=== PATIENT | male | born 2000 | race Caucasian/White ===

== ENCOUNTER 2023-06-05 11:13 | Emergency (ER) | payer BC, SELFPAY ==
[2023-06-05 11:18] VITALS: BP 124/81; PULSE 95; RESP 18; TEMP 36.9; O2SAT 98; BMI 19.7
--- NOTE | 2023-06-05 11:24 | XR_ITS ---
[facility] [id number] Patient Name: ZARINA DUNNE MRN: [id number] date: 2000 Sex: M Assigned Patient Location: ER Current Patient Location: ED.MAIN Accession/Order Number: [id number] Exam Date: 06/05/2023 11:32 Report Date: 06/05/2023 11:55 At the request of: SONG MARCUS Procedure: XR finger RT min 2V PROCEDURE: XR finger RT min 2V HISTORY: crush injury to right hand second digit COMPARISON: None. FINDINGS: BONES:No fracture, acute abnormality, or significant arthropathy. SOFT TISSUES:No visible soft tissue swelling. EFFUSION:None visible. OTHER: Negative. XR/XR finger RT min 2V IMPRESSION: 1. No acute bone abnormality. Electronically authenticated by: CHARLES HERNANDEZ Date: 06/05/2023 11:55
--- NOTE | 2023-06-05 12:22 | ED.UPPEXIN1 ---
HPI - Extremity Injury (Upper) General Chief Complaint: Extremity Injury, Upper Stated Complaint: UPPER EXTREMITY INJURY Time Seen by Provider: 06/05/23 12:22 Source: patient Mode of arrival: walk-in Limitations: no limitations History of Present Illness HPI narrative: patient here in injury to his right index finger. He got it caught in a door while at work today. He believes his regular childhood shots are up-to-date. He was seen by the nursing staff with x-rays at triage. X-ray of the right index finger does not show any bony abnormality. He does not have any other injuries today. He is right-handed dominant. Related Data Home Medications Medication Instructions Recorded Confirmed No Known Home Medications 06/05/23 06/05/23 Allergies Allergy/AdvReac Type Severity Reaction Status Date / Time No Known Drug Allergies Allergy Verified 06/05/23 11:18 PFSH PFSH Social History Smoking status: Current every day smoker Exam Narrative Exam Narrative: awake alert pleasant. Somewhat anxious about the injury. On examination there is a lot of dried blood in the area. We will soak him in some saline solution and gently cleanse the area to assess the damages. I do not see an obvious laceration. The rest the hand is normal with the exception the distal phalanx of the right index finger. Constitutional Vital Signs, click to edit/add: Last Vital Signs Temp 98.5 F 06/05/23 11:18 Pulse 95 H 06/05/23 11:18 Resp 18 06/05/23 11:18 BP 124/81 06/05/23 11:18 Pulse Ox 98 06/05/23 11:18 O2 Del Method Room Air 06/05/23 11:18 Course Vital Signs Vital signs: Vital Signs Temperature 98.5 F 06/05/23 11:18 Pulse Rate 95 H 06/05/23 11:18 Respiratory Rate 18 06/05/23 11:18 Blood Pressure 124/81 06/05/23 11:18 Pulse Oximetry 98 06/05/23 11:18 Oxygen Delivery Method Room Air 06/05/23 11:18 Temperature 98.5 F 06/05/23 11:18 Pulse Rate 95 H 06/05/23 11:18 Respiratory Rate 18 06/05/23 11:18 Blood Pressure 124/81 06/05/23 11:18 Pulse Oximetry 98 06/05/23 11:18 Oxygen Delivery Method Room Air 06/05/23 11:18 Discharge Plan Discharge Chief Complaint: Extremity Injury, Upper Prescriptions / Home Meds: No Action No Known Home Medications Referrals: Physician,Non-Staff, MD [Primary Care Provider] - 1 week
--- NOTE | 2023-06-05 13:38 | ED_ITS ---
HPI - Extremity Injury (Upper) General Chief Complaint: Extremity Injury, Upper Stated Complaint: UPPER EXTREMITY INJURY Time Seen by Provider: 06/05/23 12:22 Source: patient Mode of arrival: walk-in Limitations: no limitations History of Present Illness HPI narrative: Patient is a 22-year-old male who presents to the emergency department for the evaluation of a crush injury to the right index finger that occurred at work. He states he slammed his finger in a steel door. He reported to attending physician that his tetanus is up-to-date. He sustained a superficial laceration to the distal tip of the finger under the fingernail. Bleeding is well- controlled. No other associated injuries. He is right-hand dominant. Related Data Previous Rx's Medication Instructions Recorded hydrocodone 5 mg-acetaminophen 325 1 tab PO Q6H PRN pain 3 days #12 06/05/23 mg tablet tabs ketorolac 10 mg tablet 10 mg PO TID PRN pain #10 tabs 06/05/23 Allergies Allergy/AdvReac Type Severity Reaction Status Date / Time No Known Drug Allergies Allergy Verified 06/05/23 11:18 Review of Systems ROS Constitutional Denies: fever or chills Ears, nose, mouth, and throat Denies: throat pain Cardiovascular Denies: chest pain Respiratory Denies: shortness of breath or cough Gastrointestinal Denies: nausea or vomiting Musculoskeletal Reports: extremity pain and extremity swelling; Denies: back pain Integumentary/Breast Denies: rash Neurological Denies: headache Hematologic/Lymphatic Denies: easy bruising or easy bleeding PFSH PFS Social History Smoking status: Current every day smoker Exam Narrative Exam Narrative: Gen.: Awake, alert, in no distress Head: Normocephalic, atraumatic ENT: Moist mucous membranes Respiratory: No respiratory distress Extremities: Diffuse tenderness of the distal fingertip of the right index finger with normal flexion and extension. Fingernail is without subungual hematoma. There is a superficial laceration of the skin under the finger nail extending to the radial aspect of the fingertip. Laceration does not extend into the subcutaneous tissue and cannot be pulled apart. Psych: Normal mood and affect Neuro: No focal neuro deficit Skin: Warm, dry Constitutional Vital Signs, click to edit/add: Last Vital Signs Temp 98.5 F 06/05/23 11:18 Pulse 95 H 06/05/23 11:18 Resp 18 06/05/23 11:18 BP 124/81 06/05/23 11:18 Pulse Ox 98 06/05/23 11:18 O2 Del Method Room Air 06/05/23 11:18 Course Vital Signs Vital signs: Vital Signs Temperature 98.5 F 06/05/23 11:18 Pulse Rate 95 H 06/05/23 11:18 Respiratory Rate 18 06/05/23 11:18 Blood Pressure 124/81 06/05/23 11:18 Pulse Oximetry 98 06/05/23 11:18 Oxygen Delivery Method Room Air 06/05/23 11:18 Temperature 98.5 F 06/05/23 11:18 Pulse Rate 95 H 06/05/23 11:18 Respiratory Rate 18 06/05/23 11:18 Blood Pressure 124/81 06/05/23 11:18 Pulse Oximetry 98 06/05/23 11:18 Oxygen Delivery Method Room Air 06/05/23 11:18 MDM - Extremity Injury (Upper) MDM Narrative Medical decision making narrative: Patient was initially evaluated by attending physician. Laceration is superficial and healing will not be improved by sutures. Patient was cleansed in the ER, bacitracin and bulky dressing with splint applied. He was encouraged to keep the area clean, soap and water with antibiotic ointment applied daily. Follow-up with occupational health. A short course of analgesics and NSAIDs given for home. Medical Records Attestation: I reviewed the patient's medical records. Imaging Data XR finger: Attestation: I have reviewed the pertinent imaging results. Discharge Plan Discharge Chief Complaint: Extremity Injury, Upper Clinical Impression: Crushing injury of right index finger Patient Disposition: Home, Self-Care Time of Disposition Decision: 13:33 Condition: Good Prescriptions / Home Meds: New hydrocodone-acetaminophen 5-325 mg tablet 1 tab PO Q6H PRN (Reason: pain) 3 Days Qty: 12 0RF Rx Instructions: DX: S67.10xA ketorolac 10 mg tablet 10 mg PO TID PRN (Reason: pain) Qty: 10 0RF Instructions: Crush Injury (ED) Stand Alone Forms: Portal Instructions Referrals: [facility] [Outside] - 1 week Physician,Non-Staff, MD [Primary Care Provider] - 1 week
[2023-06-05] MEDS: BACITRACIN 0.9 GM PACKET 1 PACKET TOPICAL (13:47)
== END 2023-06-05 13:51 | disposition home or self-care (01) ==
PROVIDERS: Emergency Provider Emergency Medicine Emergency Medical Services
DX: S67.190A Crushing injury of right index finger, initial encounter (principal); W23.0XXA Caught, crushed, jammed, or pinched between moving objects, initial encounter; F17.210 Nicotine dependence, cigarettes, uncomplicated
CPT/HCPCS: 73140; 99283

== ENCOUNTER 2024-05-22 08:20 | Emergency (ER) | payer OTHER, SELFPAY ==
[2024-05-22 08:23] VITALS: BP 136/83; PULSE 95; TEMP 36.5; O2SAT 96; BMI 23.3
[2024-05-22] MEDS: ONDANSETRON 4 MG RAPDIS TABLET SL (08:45)
--- NOTE | 2024-05-22 08:52 | ED_ITS ---
HPI - Nausea/Vomiting/Diarrhea General Chief complaint: Nausea/Vomiting/Diarrhea Stated complaint: VOMITTING Time Seen by Provider: 05/22/24 08:29 Source: patient Mode of arrival: walk-in Limitations: no limitations History of Present Illness HPI Narrative: The patient presented to us with a 3 episodes of nausea and vomiting that started last night. Apparently the patient was in a hotel and when he got to his room apparently vomited 3 times since yesterday. He was able to tolerate p.o. intake with some chips The patient mentioned that he also have some body ache he denies any cough or difficulty breathing or any other complaints He have some epigastric discomfort but there is no diarrhea at the moment Related Data Home Medications ?Medication ?Instructions ?Recorded ?Confirmed No Known Home Medications 05/22/24 05/22/24 Previous Rx's ?Medication ?Instructions ?Recorded ondansetron 4 mg disintegrating 4 mg PO Q8H PRN nausea and 05/22/24 tablet vomiting 48 hours #6 tabs Allergies Allergy/AdvReac Type Severity Reaction Status Date / Time No Known Drug Allergies Allergy Verified 06/05/23 11:18 Review of Systems ROS Status of ROS 10 or more systems reviewed and unremark able except as noted in history and below PFSH PFSH Social History Smoking status: Current every day smoker Little interest or pleasure in doing things: not at all Feeling down, depressed, or hopeless: not at all Exam Narrative Exam Narrative: Nurses notes and vital signs reviewed and patient is not hypoxic. General: Well-appearing and in no apparent distress. Skin: Warm, dry, no pallor noted. No rash. Head: Normocephalic, atraumatic. Neck: Supple, non-tender. Eye: Pupils are equal, round and EOMI. No scleral icterus. Ears, Nose, Mouth, and Throat: TM are clear, no nasal mucosal hypertrophy. Oral mucosa is moist, no posterior oropharynx erythema, uvula is mid-line Cardiovascular: Regular Rate and Rhythm without murmur, gallop or rub. Respiratory: No accessory muscle use or respiratory distress. Lungs are clear to auscultation, no wheezing, rales or rhonchi Chest Wall: no tenderness Back: No midline thoracic or lumbar vertebral tenderness. No CVA tenderness Musculoskeletal: normal ROM, no calf or popliteal tenderness, no lower extremity edema/swelling GI: Abdomen is soft, non-distended. Normal bowel sounds. No masses appreciated. No tenderness to palpation. No rebound, guarding, or rigidity noted. Neurological: A&O x4. No cranial nerve dysfunction observed. No truncal ataxia. Moves all extremities. Sensation intact. Psychiatric: Cooperative and interactive. Normal mood and affect. Constitutional Vital Signs, click to edit/add: Last Vital Signs Temp 97.7 F 05/22/24 08:23 Pulse 95 H 05/22/24 08:23 Resp 18 05/22/24 08:23 BP 136/83 05/22/24 08:23 Pulse Ox 96 05/22/24 08:23 O2 Del Method Room Air 05/22/24 08:23 Course Vital Signs Vital signs: Vital Signs Temperature 97.7 F 05/22/24 08:23 Pulse Rate 95 H 05/22/24 08:23 Respiratory Rate 18 05/22/24 08:23 Blood Pressure 136/83 05/22/24 08:23 Pulse Oximetry 96 05/22/24 08:23 Oxygen Delivery Method Room Air 05/22/24 08:23 Temperature 97.7 F 05/22/24 08:23 Pulse Rate 95 H 05/22/24 08:23 Respiratory Rate 18 05/22/24 08:23 Blood Pressure 136/83 05/22/24 08:23 Pulse Oximetry 96 05/22/24 08:23 Oxygen Delivery Method Room Air 05/22/24 08:23 MDM - Nausea/Vomiting/Diarrhea MDM Narrative Medical decision making narrative: The patient was tolerating p.o. intake before arrival with the [facility] and he had some nausea and vomiting prior to that, but now just supportive care with Zofran and hydration patient to monitoring his symptoms The patient is to follow up with primary care physician in next 2-3 days or to return to the emergency department should any of the signs or symptoms worsen or new symptoms develop. The patient agrees with the following Diagnosis and Treatment plan and the patient will be discharged home. Discharge Plan Discharge Chief Complaint: Nausea/Vomiting/Diarrhea Clinical Impression: Gastroenteritis Patient Disposition: Home, Self-Care Time of Disposition Decision: 09:00 Condition: Good Prescriptions / Home Meds: New ondansetron 4 mg tablet,disintegrating 4 mg PO Q8H PRN (Reason: nausea and vomiting) 2 Days Qty: 6 0RF No Action No Known Home Medications Print Language: Serbian Instructions: Acute Nausea and Vomiting (DC) Referrals: Physician,Non-Staff, MD [Primary Care Provider] - 1 week
--- OUTSIDE RECORDS SUMMARY | 2024-05-22 08:55 | XMS_ITS | CCD ---
Author Organization [facility] Care Team Providers Care Equipment Cleaner And Tester Name Role Phone VIMALBO SILVA Unavailable Unavailable ALEXX REED Unavailable Unavailable ELLEN BEDOYA Unavailable Unavailable ALEXX REED Unavailable Unavailable CESIA DEL TORO (CUSTOMER ENGAGEMENT SPECIALIST) Unavailable Unavailable CESIA DEL TORO (CUSTOMER ENGAGEMENT SPECIALIST) Unavailable Unavailable Vickey Munson Unavailable Unavailable Alexx Reed Unavailable Unavailable Bharathi Jackson Unavailable [phone] Unavailable Unavailable BHARATHI JACKSON Primary Care Physician Dr. Alexx Reed Primary Care Dr. Bharathi Silva Referring Jin Jackson, Dr. Bharathi Garcia Attending Jin Jackson, Dr. Bharathi Garcia Attending Dr. Bharathi Ortega Primary Care Bharathi Ortega MD Primary Care Provider Dillan Funez Attending Dr. Bharathi Silva Primary Care Lane Griffiths Attending Unavailable Seth Amanda Attending Unavailable Allergies Allergy Classification Reported Allergen(s) Allergy Type Date of Onset Reaction(s) Facility (1 source) No Known Medication Allergies; Translations: [No Known Medication Allergies] Propensity to adverse reactions (disorder) [facility] Repository Medications Current Medications Medication Drug Class(es) Dates Sig (Normalized) Sig (Original) hydrOXYzine pamoate 25 mg oral capsule (1 source) Antihistamine Start: 06-25-2022 take 1-2 tablets by mouth three times daily as needed for anxiety Vistaril 25 mg Cap 1-2 tabs, Oral, TID, PRN as needed for anxiety, # 30 tab(s), Refills(s) 0 Start Date: 06/25/22 Status: Ordered ondansetron 4 mg oral tablet (1 source) Serotonin-3 Receptor Antagonist Start: 07-22-2022 End: 07-27-2022 take 1 tablet by mouth every eight hours as needed for nausea Zofran 4 mg Tab 4 mg = 1 tab(s), Oral, q8hr, PRN Nausea/Vomiting, X 5 day(s), # 15 tab(s), Refills(s) 0, Pharmacy: [id number], 184, cm, 07/22/22 12:47:00 EST, Height/Length Dosing, 63.4, kg, 07/22/22 12:47:00 EST, Weight Dosing Start Date: 07/22/22 Stop Date: 07/27/22 Status: Ordered Completed/Discontinued Medications Medication Drug Class(es) Dates Sig (Normalized) Sig (Original) diazePAM 5 mg oral tablet (4 sources) Benzodiazepine Start: 06-15-2022 End: 09-26-2022 take 1 tablet by mouth every twelve hours for anxiety diazePAM (Valium) 5 mg tablet Take 1 tablet (5 mg) by mouth every 12 hours if needed for anxiety. 0 06/18/2022 09/26/2022 Discontinued (Therapy completed) erythromycin 0.005 mg/mg ophthalmic ointment (1 source) Macrolide, Macrolide Antimicrobial Start: 08-20-2023 End: 08-27-2023 erythromycin Opth 0.5% Oint 1/4 inch ribbon, Eye-Right, As Directed for 7 day(s), 3.5 gm, Refill(s) 0, Apply to right eye 3 times a day for the next 7 days, [id number], 184, cm, 08/20/23 12:32:00 EDT, Height/Length Dosing, 66.3, kg, 08/20/23 12:32:00 EDT, Weight Dosing Start Date: 08/20/23 Stop Date: 08/27/23 Status: Ordered Lactose Intolerance CAPS (1 source) Lactose Intolerance CAPS Refills: 0 Active Omeprazole (1 source) Proton Pump Inhibitor Omeprazole TBEC Refills: 0 Active PARoxetine hydrochloride 10 mg oral tablet (4 sources) Serotonin Reuptake Inhibitor Start: 06-15-2022 End: 09-26-2022 take 1 tablet by mouth once daily PARoxetine (Paxil) 10 mg tablet Take 1 tablet (10 mg) by mouth once daily. as directed 0 06/15/2022 09/26/2022 Discontinued (Therapy completed) Problems Active Problems Problem Classification Problem Date Documented Da te Episodic/Chronic Acute bronchitis (1 source) Acute bronchitis Onset: 7 Anxiety disorders (8 sources) Mixed anxiety and depressive disorder; Translations: [Panic attack] Onset: 3 Chronic Disorders usually diagnosed in infancy, childhood, or adolescence (2 sources) Other tic disorders; Translations: [Tic disorder, unspecified] Onset: 3 Chronic Esophageal disorders (1 source) Gastro-esophageal reflux disease without esophagitis; Translations: [Gastro-esophageal reflux disease without esophagitis] Onset: 3 Chronic Esophageal disorders (1 source) Esophageal disorders Onset: 7 Headache, including migraine (8 sources) Headache; Translations: [Headache disorder] Onset: 7 09-18-2022 Episodic Headache, including migraine (1 source) Headache, including migraine Onset: 7 Headache; including migraine (1 source) Migraine; Translations: [Migraine, unspecified, not intractable, without status migrainosus] Onset: 3 Chronic Inflammation; infection of eye (except that caused by tuberculosis or sexually transmitteddisease) (1 source) Blepharitis of right eyelid; Translations: [Unspecified blepharitis right eye, unspecified eyelid] Onset: 4 Episodic Intracranial injury (3 sources) Personal history of traumatic brain injury; Translations: [History of concussion injury of brain] Episodic Comment on above: Hospitalized; Mood disorders (5 sources) Depressive disorder; Translations: [Depressive disorder, not elsewhere classified] Onset: 3 09-18-2022 Chronic Nausea and vomiting (1 source) Nausea and vomiting; Translations: [Nausea with vomiting, unspecified] Onset: 3 Episodic Other connective tissue disease (4 sources) Muscle pain; Translations: [Myalgia and myositis, unspecified] Onset: 3 09-18-2022 Episodic Other disorders of stomach and duodenum (3 sources) Stomach problem; Translations: [Unspecified functional disorder of stomach] Episodic Comment on above: Hospitalized; Other gastrointestinal disorders (3 sources) Personal history of other diseases of the digestive system; Translations: [History of gastroesophageal reflux disease] Episodic Other injuries and conditions due to external causes (3 sources) H/O: head injury; Translations: [Personal history of other injury] Episodic Other lower respiratory disease (1 source) Hyperventilation; Translations: [Hyperventilation] Onset: 3 Episodic Residual codes; unclassified (3 sources) Insomnia; Translations: [Sleep disturbance, unspecified] Episodic Screening and history of mental health and substance abuse codes (1 source) H/O: anxiety state; Translations: [Personal history of other mental and behavioral disorders] 09-18-2022 Episodic Unclassified (1 source) Other fatigue / R53.83(ICD-9) Onset: 7 Unclassified (2 sources) Acute pharyngitis, unspecified / J02.9(ICD-9) Onset: 7 Unclassified (1 source) Cough / R05(ICD-9) Onset: 7 Unclassified (1 source) Lactose intolerance, unspecified / E73.9(ICD-9) Onset: 7 Unclassified (1 source) Contact with and (suspected) exposure to COVID-19; Translations: [Contact with and (suspected) exposure to COVID-19] Onset: 3 Past or Other Problems Problem Classification Problem Date Documented Date Episodic/Chronic Malaise and fatigue (1 source) Other fatigue; Translations: [Other fatigue] Onset: 01-17-2017 Episodic Mood disorders (1 source) Mood disorders Onset: 06-15-2022 09-25-2022 Other aftercare (1 source) Other custodial (current) drug therapy; Translations: [Other community health education coordinator (current) drug therapy] Onset: 06-30-2022 Episodic Other lower respiratory disease (1 source) Cough; Translations: [Cough] Onset: 04-23-2017 Episodic Other nervous system disorders (1 source) Other speech disturbances; Translations: [Other speech disturbances] Onset: 06-30-2022 Episodic Other nutritional; endocrine; and metabolic disorders (3 sources) Malabsorption of glucose; 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 Comment on above: Added by Problem Kyra t Migration; 2013-01-18; Moved to [facility] Apr 18 2013 4:02PM; Other upper respiratory infections (1 source) Acute pharyngitis, unspecified; Translations: [Acute pharyngitis, unspecified] Onset: 04-23-2017 Episodic Results Test Name Value Interpretation Reference Range Facility Ambulatory Visit Summaryon 0 08-20-2023 Ambulatory Visit Summary KING DUNNE :2000 Visit Date:08/20/2023 Ambulatory Visit Instructions Your Diagnosis Blepharitis of right eye Your Care Team Attending Physician - Treasure SANDOVAL, Seth Evans Primary Care Physician - MANUEL CASTELAN, BHARATHI Hurtado This Is Your Medications List erythromycin ophthalmic (erythromycin Opth 0.5% Oint) Procedures Performed None. Discharge Vitals Temperature (Oral) 36.8 ?C Heart Rate (Peripheral) 79 Blood Pressure 120/70 Height 184 cm Height 72 in Weight 66.3 kg Weight 145.86 lb BMI 19.58 Medications What How Much When Why Instructions New erythromycin ophthalmic (erythromycin Opth 0.5% Oint) 1/4 inch ribbon Right eye As Directed Blepharitis of right eye Duration: 7 Days Apply to right eye 3 times a day for the next 7 days Pickup at [facility] Pharmacy Information [facility]: [id number] [phone] Medications and Immunizations Administered Not Given influenza virus vaccine, inactivated, Patient Refuses Allergies No Known Allergies No Known Medication Allergies Patient Survey You may receive a survey via text or e-mail asking about your office visit. Please share your experience with us by completing your survey. We appreciate your feedback and thank you for choosing us for your care. Normal [facility] Family Medicine Office/Clini c Noteon 08-20-2023 Family Medicine Office/Clinic Note Chief Complaint swollen, red, itchy right eye HPI Staff 22 year old male presents with painful, itchy, and swollen shut right eye. bruising. no injury symptoms began two days ago History of Present Illness Reviewed and agree with above documented HPI by medical imaging director. Patient is a 22-year-old male who presents with complaint of a painful, itchy, swollen right eye. He states when symptoms began it, felt like his eye was bruised. He denies any injury or foreign body injection to the eye. He does state that he works for the [employer] and even though he has gloves sometimes his hands get dirty. He states there is a possibility he may have gotten an unintentional foreign object into his eye. He denies being recently sick or being around anyone has been sick. He states the symptoms started 2 days ago. He denies blurry or double vision. He states that everything looks clear as long as he looks down. He states that things are blurry when he tries to look for due to the swelling of his right eye. Denies any symptoms of left eye. His mother did place 1 drop of gentamicin eyedrops in his eye this morning. Patient has no known allergies. Review of Systems PHQ Score Initial Depression Screen Score: 0 SCORE Physical Exam Vitals & Measurements T: 36.8 ?C(Oral) HR: 79(Peripheral) BP: 120/70 SpO2: 98% HT: 72 in HT: 184 cm WT: 66.3 kg WT: 145.86 lb BMI: 19.58 General: Well developed, well nourished, in no acute distress, does not appear ill or septic Eyes: Pupils equal, round, and reactive to light. Conjunctivae and sclerae normal, and extraocular movements intact right eyelid swollen and erythemic, crusty exudate on eyelashes, no foreign object seen with exam Ears: No deformity or lesion of external ear. Canals and TM appear normal bilaterally. TM?s intact, not inflamed, with normal light reflex. Hearing grossly normal to conversational speech Nose: No deformity, discharge, inflammation, or lesions Mouth: Mucous membranes moist. Normal oropharynx, and posterior pharynx without lesions or exudates. Tongue normal Neck: no adenopathy Lungs: Normal respiratory effort and clear to auscultation Cardio: regular rate and rhythm, no murmur Abdomen: Soft, non-distended, non-tender Musculoskeletal: No deformity or scoliosis noted. Normal range of motion. Joints normal. No erythema, edema, effusion, or ecchymosis Extremity: No clubbing, cyanosis, edema, or deformity, with normal ROM in both upper and lower bilateral extremities Neurologic: Grossly normal Skin: No rashes, ulcerations, or suspicious lesions Mental Status: Alert and oriented x3. Normal speech and thought content, normal mood and affect Assessment/Plan 1. Blepharitis of right eye (H01.003: Unspecified blepharitis right eye, unspecified eyelid) Please follow-up with your eye physician in 3 to 5 days. Discussed with patient in regards to treatment for blepharitis of the right upper eyelid. A prescription for erythromycin eye ointment was sent to the patient's pharmacy for her to use on the left upper eyelid 3 times daily over the next 7 days. Patient understands to return or follow-up closely with eye physician for any worsening or concerning symptoms. Patient agrees and understands plan of care. Ordered: erythromycin ophthalmic, 1/4 inch ribbon, Eye-Right, As Directed for 7 day(s), 3.5 gm, Refill(s) 0, Apply to right eye 3 times a day for the next 7 days, [facility], 184, cm, 08/20/23 12:32:00 EDT, Height/Length Dosing, 66.3, kg, 08/20/23 12:32:00 EDT, Weight Dosing Portions of this record may have been created with voice recognition artificial intelligence software, specifically [employer] and or [employer]. Occasional wrong-word or `pxndr-h-ppuf? substitutions may have occurred due to the inherent limitations of voice recognition and artificial intelligence software. Follow-up No qualifying data available Patient Education Blepharitis, Poqh-qy-[id number] Problem List/Past Medical History Ongoing No qualifying data Historical No qualifying data Procedure/Surgical History None. Medications erythromycin Opth 0.5% Oint, 1/4 inch ribbon, Eye-Right, As Directed Allergies No Known Allergies No Known Medication Allergies Social History Alcohol - Denies Alcohol Use, 06/25/2022 Substance Abuse - Denies Substance Abuse, 06/25/2022 Tobacco - Denies Tobacco Use, 06/25/2022 Never (less than 100 in lifetime) Tobacco Use:. Never Smokeless Tobacco Use:., 08/20/2023 Family History Family history is negative Immunizations Vaccine Date Status Comments influenza virus vaccine, inactivated - Not Given Patient Refuses SARS-CoV-2 (COVID-19) mRNA BNT-162b2 vax 12/17/2020 Recorded SARS-CoV-2 (COVID-19) mRNA BNT-162b2 vax 11/25/2020 Recorded meningococcal conjugate vaccine 11/17/2019 Recorded influenza virus vaccine, inactivated 05/29/2019 Recorded influenza virus vaccine, inactivated 03/13/2018 Recorded influenza virus (more content not included)... Normal [facility] Comment on above: Result Comment: Elec tronically Signed By: Treasure SANDOVAL, Seth Villeda.br\Date and Time Signed: 08/20/23 14:37 EDT Patient Educationon 08-20-19 Patient Education Infectious Disease Blepharitis Blepharitis is swelling of the eyelids. It can cause the eyes to feel dry or gritty. Other symptoms may include: ? Reddish, scaly skin around the scalp and eyebrows. ? Eyelids that itch or burn. ? Fluid that leaks from the eye at night. This causes the eyelashes to stick together in the morning. ? Eyelashes that fall out. ? Redness of the eyes. ? Eyes that are sensitive to light. Follow these instructions at home: Watch for any changes in how your eyes look or feel. Tell your doctor about any changes. Follow these instructions to help with your condition. Keeping clean ? Wash your hands often with soap and water for at least 20 seconds. ? Clean your eyes. Wash the edges of your eyelids using eyelid wipes or a small amount of baby shampoo that has been mixed with warm water (diluted). Do this 2 or more times a day. ? Wash your face and eyebrows at least once a day. ? Use a clean towel each time you dry your eyelids. ? Do not use the towel to clean or dry other areas of your body. ? Do not share your towel with anyone. General instructions ? Avoid wearing makeup until you get better. Do not share makeup with anyone. ? Avoid rubbing your eyes. ? Use a warm compress on your eyes for 5?10 minutes at a time. Do this 1 or 2 times a day, or as told by your doctor. You can use: ? A towel with warm water on it. ? A heating pad that can be warmed in the microwave. The pad should be very warm but not hot enough to burn the skin. ? If you were given an antibiotic cream or eye drops, use the medicine as told by your doctor. Do not stop using the medicine even if you feel better. ? Keep all follow-up visits. Contact a doctor if: ? Your eyelids feel hot. ? You have blisters on your eyelids. ? You have a rash on your eyelids. ? The swelling does not go away in 2?4 days. ? The swelling gets worse. Get help right away if: ? You have pain that gets worse or spreads to other parts of your face. ? You have redness that gets worse or spreads to other parts of your face. ? You have changes in how you see (vision). ? You have pain when you look at lights or things that move. ? You have a fever. Summary ? Blepharitis is swelling of the eyelids. ? Watch for any changes in how your eyes look or feel. Tell your doctor about any changes. ? Follow home care instructions as told by your doctor. Wash your hands often with soap and water for at least 20 seconds. Avoid wearing makeup. Do not rub your eyes. ? Use a warm compress, creams, or eye drops as told by your doctor. ? Let your doctor know if you have changes in how you see, blisters or a rash on your eyelids, or other problems. This information is not intended to replace advice given to you by your health care provider. Make sure you discuss any questions you have with your health care provider. Document Revised: 06/14/2021 Document Reviewed: 06/14/2021 [employer] Patient Education ? 2022 [employer] Normal [facility] ALCOHOLon 06-30-2022 Ethanol [Mass/Vol] mg/dL Normal [facility] Comment on above: Result Comment: FOR MEDICAL USE ONLY. . REF VALUES <10 Performed By: #### A #### [address] [id number] CBC AND DIFFERENTIALon 06-30 % AUTOMATED IMMATURE GRAN 0.1 % Normal 0.0 - 0.9 [facility] Comment on above: Result Comment: Rowan ture Granulocyte Count (IG) includes promyelocytes, myelocytes and metamyelocytes but does not include bands. Percent differential counts (%) should be interpreted in the context of the absolute cell counts (cells/L). Performed By: #### C BCDF #### [address] [id number] Basophils (Bld) [#/Vol] 0.03 10*3/uL Normal 0.00 - 0.1 0 [facility] Comment on above: Performed By: #### C BCDF #### [address] [id number] Basophils/100 WBC (Bld) 0.4 % Normal 0.0 - 2.0 [facility] Comment on above: Performed By: #### C BCDF #### [address] [id number] Eosinophils (Bld) [#/Vol] 0.22 10*3/uL Normal 0.00 - 0.70 [facility] Comment on above: Performed By: #### C BCDF #### [address] [id number] Eosinophils/100 WBC (Bld) 3.1 % Normal 0.0 - 6.0 [facility] Comment on above: Performed By: #### C BCDF #### [address] [id number] Erythrocyte distribution width (RBC) [Ratio] 12.2 % Normal 11.5 - 14.5 [facility] Comment on above: Performed By: #### C BCDF #### [address] [id number] Hematocrit (Bld) [Volume fraction] 44.5 % Normal 41.0 - 52.0 [facility] Comment on above: Performed By: #### C BCDF #### [address] [id number] Hemoglobin (Bld) [Mass/Vol] 15.0 g/dL Normal 13.5 - 17.5 [facility] Comment on above: Performed By: #### C BCDF #### [address] [id number] Lymphocytes (Bld) [#/Vol] 3.10 10*3/uL Normal 1.20 - 4.80 [facility] Comment on above: Performed By: #### C BCDF #### [address] [id number] Lymphocytes/100 WBC (Bld) 43.4 % Normal 13.0 - 44.0 [facility] Comment on above: Performed By: #### C BCDF #### [address] [id number] MCHC (RBC) [Mass/Vol] 33.7 g/dL Normal 32.0 - 36.0 [facility] Comment on above: Performed By: #### C BCDF #### [address] [id number] MCV (RBC) [Entitic vol] 87 fL Normal 80 - [address] [facility] Comment on above: Performed By: #### C BCDF #### [address] [id number] Monocytes (Bld) [#/Vol] 0.61 10*3/uL Normal 0.10 - 1.0 0 [facility] Comment on above: Performed By: #### C BCDF #### [address] [id number] Monocytes/100 WBC (Bld) 8.5 % Normal 2.0 - 10.[address] [facility] Comment on above: Performed By: #### C BCDF #### [address] [id number] Neutrophils (Bld) [#/Vol] 3.18 10*3/uL Normal 1.20 - 7.70 [facility] Comment on above: Performed By: #### C BCDF #### [address] [id number] Neutrophils/100 WBC (Bld) 44.5 % Normal 40.0 - 80.0 [facility] Comment on above: Performed By: #### C BCDF #### [address] [id number] Platelets (Bld) [#/Vol] 244 10*3/uL Normal 150 - 450 [facility] Comment on above: Performed By: #### C BCDF #### [address] [id number] RBC 5.11 x10E12/L Normal 4.50 - 5.90 [facility] Comment on above: Performed By: #### C BCDF #### [address] [id number] WBC (Bld) [#/Vol] 7.2 10*3/uL Normal 4.4 - 11.3 [facility] Comment on above: Performed By: #### C BCDF #### [address] [id number] COMPREHENSIVE PANELon 2022 Albumin [Mass/Vol] 4.6 g/dL Normal 3.4 - 5.0 [facility] Comment on above: Performed By: #### C MP ####[facility] [place] [address] [id number] ALP [Catalytic activity/Vol] 81 U/L Normal 33 - 120 [facility] Comment on above: Performed By: #### C MP ####[facility] [place] [address] [id number] ALT [Catalytic activity/Vol] 14 U/L Normal 10 - 52 [facility] Comment on above: Result Comment: Carmen ents treated with Sulfasalazine may generate falsely decreased results for ALT. Performed By: #### C MP ####[facility] [place], [place] [id number] Anion gap [Moles/Vol] 12 mmol/L Normal 10 - 20 [facility] Comment on above: Performed By: #### C MP ####[address] [id number] AST [Catalytic activity/Vol] 16 U/L Normal 9 - 39 [facility] Comment on above: Performed By: #### C MP ####[facility] [place], [place] [id number] Bilirubin [Mass/Vol] 1.9 mg/dL High 0.0 - 1.2 [facility] Comment on above: Performed By: #### C MP ####[facility] [place], [place] [id number] Calcium [Mass/Vol] 9.7 mg/dL Normal 8.6 - 10.3 [facility] Comment on above: Performed By: #### C MP ####[facility] [place] [address] [id number] Chloride [Moles/Vol] 103 mmol/L Normal 98 - 107 [facility] Comment on above: Performed By: #### C MP ####[address] [id number] Creatinine [Mass/Vol] 0.86 mg/dL Normal 0.50 - 1.30 [facility] Comment on above: Performed By: #### C MP ####[address] [id number] eGFR MALE >90 Normal >90 [facility] Comment on above: Result Comment: CALC ULATIONS OF ESTIMATED GFR ARE PERFORMED USING THE 2020 CKD-EPI STUDY REFIT EQUATION WITHOUT THE RACE VARIABLE FOR THE IDMS-TRACEABLE CREATININE METHODS. https://jasn.asnjournals.org/content//ASN.2020 626495 Performed By: #### C MP ####[facility] [place], [place] [id number] Glucose [Mass/Vol] 96 mg/dL Normal 74 - 99 [facility] Comment on above: Performed By: #### C MP ####[address] [place], [place] [id number] HCO3 (Bld) [Moles/Vol] 28 mmol/L Normal 21 - 32 [facility] Comment on above: Performed By: #### C MP ####[facility] [place], [place] [id number] Potassium [Moles/Vol] 4.1 mmol/L Normal 3.5 - 5.3 [facility] Comment on above: Performed By: #### C MP ####[facility] [place], [place] [id number] Protein [Mass/Vol] 7.6 g/dL Normal 6.4 - 8.2 [facility] Comment on above: Performed By: #### C MP ####[facility] [place], [place] [id number] Sodium [Moles/Vol] 139 mmol/L Normal 136 - 145 [facility] Comment on above: Performed By: #### C MP ####[facility] [place], [place] [id number] Urea nitrogen [Mass/Vol] 19 mg/dL Normal 6 - 23 [facility] Comment on above: Performed By: #### C MP ####[facility] [place], [place] [id number] CORONAVIRUS 2019, SCREEN ASY MPTOMATICon 06-30-2022 SARS-CoV-2 (COVID-19) RNA ROCCO+probe Ql (Unsp spec) Not detected Normal Not Detected [facility] Comment on above: Result Comment: . This test has received FDA Emergency Use Authorization (EUA) and has been verified by [facility]. This test is only authorized for the duration of time that circumstances exist to justify the authorization of the emergency use of in vitro diagnostic tests for the detection of SARS-CoV-2 virus and/or diagnosis of COVID-19 infection under section 564(b)(1) of the Act, 21 U.S.C. 360bbb-3(b)(1), unless the authorization is terminated or revoked sooner. [facility] is certified under CLIA-88 as qualified to perform high complexity testing. Testing is performed in the [facility] laboratory located at [address] [place] [address], [place] [address]. SARS-CoV-2/Flu/RSV Multiplex Test: Fact sheet for providers: https://www.fda.gov/media/862144/download Fact sheet for patients: https://www.fda.gov/media/377018/download Performed By: #### C OVSC #### [address] [id number] Lab Specimen Source Nasal, Nasopharyngeal Normal [facility] Comment on above: Performed By: #### C OVSC #### [address] [id number] CREATINE KINASEon 06-30-2022 CK [Catalytic activity/Vol] 87 U/L Normal 0 - 325 [facility] Comment on above: Performed By: #### C K #### [address] [id number] Covid 19 Resultson SARS-CoV-2 (COVID-19) RNA ROCCO+probe Ql (Unsp spec) NEGATIVE COVID-19 Test Coronaviruses are common world-wide and are the cause of many common colds. SARS-COV2 is a new coronavirus that began circulating worldwide in 2019 so we are calling it COVID-19. It has been estimated that four out of five patients with COVID-19 will recover at home without the need for medical attention. Symptoms of COVID-19 may include cough, fever, shortness of breath, loss of taste or smell and other flu-like symptoms including chills, sore muscles, sore throat, and headache. Severe illness is more common in older people and people with other health problems such as high blood pressure, obesity, and immune system problems. If the test is positive, you have COVID-19. You will be contacted by the ordering physicians office and instructed to remain on home isolation, in accordance with CDC guidelines. You may also be contacted by the [facility] to see if any of your close contacts may have been exposed to the virus and need to quarantine. If the test is negative, you likely do not have COVID-19 at this time, but you still may have a different illness that can spread to other people (like Influenza, or the Flu) and could still be at risk for getting COVID-19. We recommend that you stay away from other people to limit the spread of illness until your symptoms are improving and you are fever-free for 24 hours without the use of fever lowering medications such as acetaminophen or ibuprofen. No test is 100% accurate so if you are still concerned you may have COVID-19, talk to your doctor about the need to continue to stay away from others. Medicines Unless your provider told you not to use the following: Acetaminophen (Tylenol and others) is generally safe. Anti-inflammatory medications, such as Ibuprofen (Advil or Motrin) or Naproxen (Aleve) can also be used. Odmm-blf-upxdwhu cough and cold medicines can be used according to the instructions on the package. Some kxnj-lrx-fveobjy medicines also contain acetaminophen. Make sure you are not taking more than your recommended dose. For those not hospitalized, there is no specific treatment available for this illness. Antibiotics do not treat Coronaviruses. Follow-Up Follow up with your doctor by scheduling a virtual visit or consider follow-up at one of our urgent care fever clinics. If you are having difficulty breathing, or are very weak and having difficulty standing, this is a medical emergency. Call 911 or have someone take you to the nearest emergency room immediately. If possible, wear a facemask. Additional guidance from the CDC for patients who tested POSITIVE for COVID-19 How to isolate: Isolate yourself in a specific room at home and limit your contact with others. Use a separate bathroom from other members of the household, when possible. Leave home only to get essential medical care. Do not go to work, school or public areas. Avoid using public transportation, ride-sharing, or taxis. Restrict contact with pets and other animals. If you must care for your pet or be around animals while you are sick, wash your hands before and after your interaction and wear a facemask. Make sure that shared spaces in the home have good airflow, such as by an air conditioner or an opened window, weather permitting. Personal Hygiene Procedures: Wear a face mask when in the same room as other people or pets. If a face mask interferes with your breathing, others should wear a mask when sharing space with you. Frequent hand-washing: wash your hands with soap and water for at least 20 seconds. If soap and water are not available, use alcohol-based hand social worker school. Avoid touching your eyes, nose, and mouth with unwashed hands. Household Hygiene Procedures: Avoid sharing personal household items such as dishes, glassware, cups, eating utensils, towels or bedding with other people or pets in your home. After use, these items should be washed with soap and hot water. Disinfect all high-touch surfaces every day with antibacterial cleaning solutions such as Lysol wipes, bleach, cleansers, etc. High-touch surfaces include tabletops, doorknobs, bathroom fixtures, toilets, phones, keyboards, tablets and bedside tables. Immediately clean any surfaces that may have blood, poop or body fluids on them, using antibacterial cleaning solutions such as Lysol wipes, bleach, cleansers, etc. If clothing or bedding come into contact with blood, poop or body fluids, they should be washed immediately. Follow the directions on the laundry detergent and clothing labels but hot water is recommended when possible. Stopping home isolation precautions: If possible, consult your doctor before stopping home isolation precautions. According to the CDC, you can discontinue home isolation precautions when you have met both of these criteria: Your fever and respiratory symptoms have been gone for 24 gutierrez (more content not included)... Normal [facility] DRUG SCREEN,URINEon 06-30-19 23 AMPHETAMINE SCREEN,U Negative Normal NEGATIVE [facility] Comment on above: Result Comment: CUTO FF LEVEL: 500 NG/ML Cross-reactivity has been reported with high concentrations of the following drugs: buproprion, chloroquine, chlorpromazine, ephedrine, mephentermine, fenfluramine, phentermine, phenylpropanolamine, pseudoephedrine, and propranolol. Performed By: #### D RUG3 #### [address] [id number] BARBITURATES SCREEN,U Negative Normal NEGATIVE [facility] Comment on above: Result Comment: CUTO FF LEVEL: 200 NG/ML Performed By: #### D RUG3 #### [address] [id number] BENZODIAZEPINES SCREEN,U Negative Normal NEGATIVE [facility] Comment on above: Result Comment: CUTO FF LEVEL: 200 NG/ML Performed By: #### D RUG3 #### [address] [id number] CANNABINOIDS SCREEN,U Negative Normal NEGATIVE [facility] Comment on above: Result Comment: CUTO FF LEVEL: 50 NG/ML Performed By: #### D RUG3 #### [address] [id number] COCAINE METABOLITE SCREEN,U Negative Normal NEGATIVE [facility] Comment on above: Result Comment: CUTO FF LEVEL: 150 NG/ML Performed By: #### D RUG3 #### [address] [id number] DRUG SCREEN COMMENT SEE BELOW Normal [facility] Comment on above: Result Comment: Drug screen results are presumptive and should not be used to assess compliance with prescribed medication. Contact the performing [facility] laboratory to add-on definitive confirmatory testing if clinically indicated. . Toxicology screening results are reported qualitatively. The concentration must be greater than or equal to the cutoff to be reported as positive. The concentration at which the screening test can detect an individual drug or metabolite varies. The absence of expected drug(s) and/or drug metabolite(s) may indicate non-compliance, inappropriate timing of specimen collection relative to drug administration, poor drug absorption, diluted/adulterated urine, or limitations of testing. For medical purposes only; not valid for forensic use. . Interpretive questions should be directed to the laboratory medical directors. Performed By: #### D RUG3 #### [address] [id number] FENTANYL SCREEN,URINE Negative Normal NEGATIVE [facility] Comment on above: Result Comment: CUTO FF LEVEL: 5 NG/ML Performed By: #### D RUG3 #### [address] [id number] METHADONE SCREEN,U Negative Normal NEGATIVE [facility] Comment on above: Result Comment: CUTO FF LEVEL: 150 NG/ML The metabolite K-cdkxe-uncnccfammccqr (LAAM) is not detected by this method in concentrations that would be found in the urine of patients on LAAM therapy. Performed By: #### D RUG3 #### [address] [id number] OPIATES SCREEN,U Negative Normal NEGATIVE [facility] Comment on above: Result Comment: CUTO FF LEVEL: 300 NG/ML The opiate screen does not detect fentanyl, meperidine, or tramadol. Oxycodone is not consistently detected (refer to Oxycodone Screen, Urine result). Performed By: #### D RUG3 #### [address] [id number] OXYCODONE SCREEN,U Negative Normal NEGATIVE [facility] Comment on above: Result Comment: CUTO FF LEVEL: 100 NG/ML This test will accurately detect both oxycodone and oxymorphone. Performed By: #### D RUG3 #### [address] [id number] PCP SCREEN,U Negative Normal NEGATIVE [facility] Comment on above: Result Comment: CUTO FF LEVEL: 25 NG/ML Cross-reactivity has been reported with dextromethorphan. Performed By: #### D RUG3 #### [address] [id number] Provider Note - ED v3on Provider Note - ED v3 Provider Note: Chart Review: ED NOTES ED NOTES: History provided by: Patient, patient's [id number], patient's Limitations to history: None External Records Reviewed: HIE, OARRS, outpatient notes, inpatient notes CC: Anxiety, tics HPI: 21-year-old male with a history of reflux and lactose intolerance presents the emergency department for worsening anxiety and tics. Patient states that he has had worsening anxiety over the last few weeks. Patient states he has been on multiple medication regimens in the past for his anxiety. States that he was unable to tolerate Zoloft, states that it caused him to have hallucinations. Patient denies taking anything for his anxiety currently. Patient has been in the emergency department 3 times over the last week for similar symptoms. His states they always just give him Ativan and do an EKG and then discharge him, they do not really do anything to see why he is having this . States that he has had multiple medications over the last few days including Ativan, Vistaril, and even a dose of Haldol. Patient states that his symptoms are not getting any better. He denies anything in particular that is been making him feel stressed or anxious. He denies following up with a psychiatrist for this but he does have an appoint with the [facility] on Saturday. He denies suicidal ideation, homicidal ideation, or hallucinations. States that he was suicidal 4 days ago however he had evaluation for this and was given a therapist for this. He denies history of suicide attempt in the past. He denies any form of self-inflicted injury or ingestion of foreign substances/medications. Patient states that he is primarily here to be seen because he started developing tics over the last 24 hours. He states I keep blinking my eyes randomly, my speech will be staggered, and I twitch my neck . Patient states that his twitches rectally correlate with his anxiety. He states they are better when I am less anxious and way worse when I am nervous. Denies history of similar episodes in the past. Denies ever being on antipsychotics before having the Haldol a few days ago. Denies history of Tourette's disease. Denies any recent insect or tick bites. Denies any unexplained rash including rash in the wrist region or bull's-eye lesions. Denies neck pain or stiffness. Denies history of IV drug use. Patient denies any head injury. Denies all other symptoms including fever, chills, headache, vision changes, tinnitus, neck pain, back pain, sore throat, cough, chest pain, shortness of breath, hemoptysis, abdominal pain, nausea, vomiting, diarrhea, constipation, hematuria, dysuria, hematochezia, melena, weakness and numbness. ROS: Negative unless mentioned in HPI Social Hx: Denies tobacco, alcohol, drug use. Medical Hx: History significant for lactose intolerance, reflux. Denies allergies. Immunizations are up-to-date. Surgical HX: Denies Physical exam: Constitutional: Patient is well-nourished and well-developed. Sitting comfortably in the room and in no distress. Oriented to person, place, time, and situation. HEENT: Head is normocephalic, atraumatic. Patient's airway is patent. Tympanic membranes are clear bilaterally. Nasal mucosa clear. Mouth with normal mucosa. Throat is not erythematous and there are no oropharyngeal exudates, uvula is midline. No obvious facial deformities. No nuchal rigidity or meningeal signs. Negative Brudzinski and Kernig sign. No cervical spine tenderness. Eyes: Clear bilaterally. Pupils are equal round and reactive to light and accommodation. Extraocular movements intact. Cardiac: Regular rate, regular rhythm. Heart sounds S1, S2. No murmurs, rubs, or gallops. PMI nondisplaced. No JVD. Respiratory: Regular respiratory rate and effort. Breath sounds are clear and equal bilaterally, no adventitious lung sounds. Patient is speaking in full sentences and is in no apparent respiratory distress. No use of accessory muscles. Gastrointestinal: Abdomen is soft, nondistended, and nontender. There are no obvious deformities. No rebound tenderness or guarding. Bowel sounds are normal active. Genitourinary: No CVA or flank tenderness. Musculoskeletal: No reproducible tenderness. No obvious skin or bony deformities. Patient has equal range of motion in all extremities and no strength deficiencies. No muscle or joint tenderness. No back or neck tenderness. Capillary refill less than 3 seconds. Strong peripheral pulses. No sensory deficits. Neurological: Patient is alert and oriented. No focal deficits. 5/5 strength in all extremities. Cranial nerves II through XII intact. GCS15. No slurred speech or facial drooping. Upper and lower extremity coordination intact. No neurological deficits but NIH is 0. Patient is able to walk without difficulty. Patient has an occasional twitch where he blinks his eyes e (more content not included)... Normal [facility] Risk Screen - Adult Emergenc yon 06-30-2022 Risk Screen - Adult Emergency Preferred Language: Preferred Language: Preferred Language for Discussing Health Care (patient/designee)Ayana arnold Patient Preferred Pharmacy: Patient Preferred Pharmacy Statement: I have reviewed and updated the patient's preferred pharmacy selection for today's visit. Advanced Directives: Advance Directive/DNRno Family Violence Adult: Abuse Screen: Are you or have you been threatened or abused physically, emotionally, or sexually by anyoneno Learning Assessment (Patient): Learning Assessment (Patient): Patient is Able to be Assessed for Learningyes Factors Influencing Readiness to Learnanxiety Factors that Impact Ability to Learnnone Devices/Methods Used to Communicatenone Learning Preferencesaudio Cultural Considerationsnone Developmental Considerationsnone Restoration Considerationsnone Learning Assessment (Other Learner): Learning Assessment (Other Learner): Other learner availableno Pressure Injury/TB/Substance: Pressure Injury: Pressure Injury Present on Admissionno Do you have a coughno Smoking Statusnever smoker Alcohol Usedenies Drug Usedenies Drug 2 Usedenies Admission Risk Screen: Significant IndicatorsComplete CAGE: CAGE: Is this an injured patient at a Trauma Center ([facility]/[place]/[facility] a/[place]): no Electronic Signatures: Naya Sauer (RN PRN) (Signed 29-Jun-2022 22:57) Authored: Preferred Language, Patient Preferred Pharmacy, Advanced Directives, Family Violence Adult, Learning Assessment (Patient), Learning Assessment (Other Learner), Pressure Injury/TB/Substance, Pressure Injury, CAGE Last Updated: 29-Jun-2022 22:57 by Naya Sauer (RN PRN) Normal [facility] TROPONIN I, HIGH SENSITIVITY on 06-30-2022 TROPONIN I, HIGH SENSITIVITY <3 Normal 0 - 20 [facility] Comment on above: Result Comment: . Less than 99th percentile of normal range cutoff- Female and children under 18 years old <14 ng/L; Male <21 ng/L: Negative Repeat testing should be performed if clinically indicated. . Female and children under 18 years old 14-50 ng/L; Male 21-50 ng/L: Consistent with possible cardiac damage and possible increased clinical risk. Serial measurements may help to assess extent of myocardial damage. . >50 ng/L: Consistent with cardiac damage, increased clinical risk and myocardial infarction. Serial measurements may help assess extent of myocardial damage. . NOTE: Children less than 1 year old may have higher baseline troponin levels and results should be interpreted in conjunction with the overall clinical context. . NOTE: Troponin I testing is performed using a different testing methodology at [facility] than at other [facility]. Direct result comparisons should only be made within the same method. Performed By: #### T [facility] #### [address] [id number] TSHon 06-30-2022 TSH Qn 3.59 m[IU]/L Normal 0.44 - 3.98 [facility] Comment on above: Result Comment: TSH testing is performed using different testing methodology at [facility] than at other system hospitals. Direct result comparisons should only be made within the same method. Performed By: #### T SH2 #### [address] [id number] Triage - EDon 06-30-2022 Triage - ED Chart Review: ARRIVAL INFORMATION Mode of Arrival: private vehicle CHIEF COMPLAINT KING DUNNE is a Male patient with a chief complaint of psychiatric evaluation (went to hospital on Saturday night and Saturday morning for anxiety attacks- gave him ativan in ER. Since Saturday, pt is having ticks and issues with speech, and anxiety. pt was having SI thoughts on Saturday but followed up with JEYSON and is not having any SI anymore.). Triage Date/Time: 29-Jun-2022 22:53 PARESH: 3 Vital Signs: Temperature: 99.1F ( 37.3C) taken temporal Blood Pressure: 144/75 Mean: Heart Rate: 75 Respiratory Rate: 18 Pulse Oximetry: 100% on room air, no respiratory support. Height: 6 feet 1.00 inches. 185.4 CM Weight: 130.0 pounds. Calculated 59.0 kg. (stated) Calculated BMI (kg/m2): 17.164 Calculated BSA (m2) 1.74 Amy Coma Scale: Best Eye Response: (E4) spontaneous Best Motor Response: (M6) obeys commands Best Verbal Response: (V5) oriented [place] Score: 15 Allergies: no Patient has homicidal thoughts: no Risk Screens Suicide Risk Screen In the Past Month: Have you wished you were or wished you could go to sleep and not wake up no In the Past Month: Have you had any actual thoughts of killing yourself no In Your Lifetime: Have you ever done anything, started to do anything, or prepared to do anything to end your life no Pittman Fall Scale Screening Has the patient fallen before (or is the patient in the ED as a result of a fall) has not had a fall Does the patient have an impaired gait does not have impaired gait Is the patient cognitively impaired not cognitively impaired Interventions: Pittman Fall Interventions: LOW INTERVENTIONS: *patient oriented to surroundings and call system, * patient/family falls education completed and documented, *patients fall status communicated during bedside handoff, *whiteboard updated, *mode of toileting discussed with patient, *bed in low position with brakes locked, *call light in reach, * non-skid footwear TRAVEL HISTORY Travel History Coronavirus Screening: no exposure or symptoms Travel Exposure History: NO travel to International locations in the past 30 days PAIN Pain Scale Used: ARVIN Past Medical History: Past Medical History Reviewedyes Electronic Signatures: Naya Sauer (ASAD PRN) (Signed 29-Jun-2022 22:57) Authored: Quick Triage, Risk Screens, Pain, Travel History, Chart Review, Past Medical History Last Updated: 29-Jun-2022 22:57 by Naya Sauer (ASAD PRN) Normal [facility] URINALYSIS WITH CULTURE IF I NDICATEDon 06-30-2022 Appearance (U) CLEAR Normal CLEAR [facility] Comment on above: Performed By: #### U ARFX ####[address] [id number] Bilirubin Ql (U) Negative Normal NEGATIVE [facility] Comment on above: Performed By: #### U ARFX ####[address] [id number] Color (U) YELLOW Normal STRAW,YELLO W [facility] Comment on above: Performed By: #### U ARFX ####[address] [id number] Glucose Ql (U) Negative Normal NEGATIVE [facility] Comment on above: Performed By: #### U ARFX ####[address] [id number] Hemoglobin Ql (U) Negative Normal NEGATIVE [facility] Comment on above: Performed By: #### U ARFX ####[address] [id number] Ketones Ql (U) Negative Normal NEGATIVE [facility] Comment on above: Performed By: #### U ARFX ####[address] [id number] Leukocyte esterase Test strip Ql (U) Negative Normal NEGATIVE [facility] Comment on above: Performed By: #### U ARFX ####[facility] [place], [place] [id number] Nitrite Ql (U) Negative Normal NEGATIVE [facility] Comment on above: Performed By: #### U ARFX ####[id number] [place], [place] [id number] pH (U) 6.0 [pH] Normal 5.0 - 8.0 [facility] Comment on above: Performed By: #### U ARFX ####[facility] [place], [place] [id number] Protein Ql (U) Negative Normal NEGATIVE [facility] Comment on above: Performed By: #### U ARFX ####[id number] [place], [place] [id number] Specific gravity (U) [Rel density] 1.019 Normal 1.005 - 1.035 [facility] Comment on above: Performed By: #### U ARFX ####[id number] [place], [place] [id number] Urobilinogen (U) [Mass/Vol] mg/dL Normal 0.0 - 1.9 [facility] Comment on above: Performed By: #### U ARFX ####[address] [id number] CHEMISTRYOrdered By: SYSTEM SYSTEM on 06-24-2022 Amphetamines Screen method >1000 ng/mL Ql (U) Negative (06/24/22 9:56 PM) Normal Negative [facility] Barbiturates Screen Ql (U) Negative (06/24/22 9:56 PM) Normal Negative [facility] Benzodiazepines Ql (U) Positive 1 *ABN* (06/24/22 9:56 PM) Invalid Interpretation Code Negative [facility] Comment on above: Result Comment: Crit ical Result verified by repeat analysis\Critical Result UD_BENZ:POS Called to JAKUB LO AT by KATHY DONALDSON And Read Back For Confirmation at: 06/24/2022 22:33:05 Cocaine Ql (U) Negative (1/29/23 9:56 PM) Normal Negative [facility] Opiates Screen Ql (U) Negative (06/24/22 9:56 PM) Normal Negative [facility] Phencyclidine Screen method >25 ng/mL Ql (U) Negative (06/24/22 9:56 PM) Normal Negative [facility] Tetrahydrocannabinol Screen method >50 ng/mL Ql (U) Negative (06/24/22 9:56 PM) Normal Negative [facility] Albumin [Mass/Vol] 4.4 g/dL Normal 3.3 - 5.0 gm/dL [facility] Albumin/Globulin [Mass ratio] 1.5 {ratio} Normal 1.1 - 2.2 [facility] ALP [Catalytic activity/Vol] 79 [iU]/d Normal 21 - 98 Int._Unit/L [facility] ALT No additional P-5'-P [Catalytic activity/Vol] 19 [iU]/d Normal 6 - 46 Int._Unit/L [facility] Anion gap [Moles/Vol] 11 mmol/L Normal 6 - 16 mEq/L [facility] AST [Catalytic activity/Vol] 21 [iU]/d Normal 5 - 43 Int._Unit/L [facility] Bilirubin [Mass/Vol] 1.7 mg/dL High 0.0 - 1 .1 mg/dL [facility] Calcium [Mass/Vol] 9.0 mg/dL Normal 8.9 - 11. 1 mg/dL [facility] Chloride [Moles/Vol] 106 mmol/L Normal 101 - 1 11 mmol/L [facility] CO2 [Moles/Vol] 22 mmol/L Normal 21 - 31 mmol/L [facility] Creatinine [Mass/Vol] 0.8 mg/dL Normal 0.5 - 1.3 mg/dL [facility] Ethanol [Mass/Vol] mg/dL Normal <=7mg/dL [facility] R emisol GFR/1.73 sq M.predicted among blacks MDRD (S/P/Bld) [Vol rate/Area] mL/min/1.73 m2 Normal >=59mL/min/ 1.73 m2 [facility] Chem S GFR/1.73 sq M.predicted among non-blacks MDRD (S/P/Bld) [Vol rate/Area] mL/min/1.73 m2 Normal >=59mL/min/ 1.73 m2 [facility] Chem S Globulin (S) [Mass/Vol] 3.0 g/dL Normal 1.4 - 4.0 gm/dL [facility] Glucose [Mass/Vol] 101 mg/dL Normal 55 - 199 mg/dL [facility] Potassium [Moles/Vol] 3.0 mmol/L Low 3.5 - 5.3 mmol/L [facility] Protein [Mass/Vol] 7.4 g/dL Normal 6.0 - 7.8 gm/dL [facility] Sodium [Moles/Vol] 136 mmol/L Normal 135 - 145 mmol/L [facility] Urea nitrogen [Mass/Vol] 16 mg/dL Normal 5 - 21 mg/dL [facility] Urea nitrogen/Creatinine [Mass ratio] 20 mg/mg Normal 10 - 20 [facility] HEMATOLOGYOrdered By: SYSTEM SYSTEM on 06-24-2022 Basophils/100 WBC (Bld) 0.7 % Normal 0.0 - 2.0 % [facility] HemeAutoSS Basophils/Leukocytes Auto (Bld) [Pure # fraction] 0.1 E9/L Normal 0.0 - 0.2 E9/L [facility] Eosinophils/100 WBC (Bld) 2.0 % Normal 0.0 - 8.0 % [facility] Eosinophils/Leukocytes Auto (Bld) [Pure # fraction] 0.2 E9/L Normal 0.0 - 0.5 E9/L [facility] Lymphocytes/100 WBC (Bld) 33.9 % Normal 14.0 - 50.0 % [facility] Lymphocytes/Leukocytes Auto (Bld) [Pure # fraction] 2.7 E9/L Normal 1.0 - 4.0 E9/L [facility] Monocytes/100 WBC (Bld) 8.1 % Normal 4.0 - 14.0 % [facility]eAuto[facility] Monocytes/Leukocytes Auto (Bld) [Pure # fraction] 0.7 E9/L Normal 0.2 - 1.0 E9/L [facility] Neutrophils/100 WBC (Bld) 55.3 % Normal 36.0 - 75.0 % [facility] Neutrophils/Leukocytes Auto (Bld) [Pure # fraction] 4.5 E9/L Normal 2.0 - 7.5 E9/L [facility] HemeAutoSS HEMATOLOGYOrdered By: Mike Donaldson on 06-24-2022 Erythrocyte distribution width (RBC) [Ratio] 13.4 % Normal 10.9 - 14.2 % [facility] Hematocrit (Bld) [Volume fraction] 42.9 % Normal 37.7 - 49.0 % [facility] Hemoglobin (Bld) [Mass/Vol] 14.7 g/dL Normal 13.5 - 17.5 gm/dL [facility] MCH (RBC) [Entitic mass] 29.0 pg Normal 27.0 - 34.0 pg [facility] MCHC (RBC) [Mass/Vol] 34.3 g/dL Normal 31.4 - 36.0 gm/dL [facility] MCV (RBC) [Entitic vol] 84.5 fL Normal 80.0 - 100.0 fL [facility] Platelet mean volume (Bld) [Entitic vol] 7.9 fL Normal 6.4 - 10.8 fL [facility] Platelets (Bld) [#/Vol] 264.0 E9/L Normal 150. 0 - 500.0 E9/L [facility] RBC (Bld) [#/Vol] 5.1 E12/L Normal 4.3 - 5.9 E12/L [facility] WBC corrected for nucl RBC Auto (Bld) [#/Vol] 8.1 E9/L Normal 4.0 - 11.0 E9/L [facility] PHQ-9on 06-15-2022 Adult depression screening assessment Mild (5-9) [place] [address] Work Phone: PHQ-9 0-Not at all [facility] 1104 Work Phone: PHQ-9 3-Nearly every day [place] [address] Work Phone: PHQ-9 1-Several days [facility] 28 Work Phone: PHQ-9 2-More than half the days [place] [address] Work Phone: PHQ-9 Not difficult at all [facility] 6165 Work Phone: Tobacco Screening.on 023 Fall risk assessment a) No falls within the last year [facility] 6140 Work Phone: Tobacco use status CPHS b) No M -[facility] 6133 Work Phone: ED Discharge Educationon ED Discharge Education Normal So [facility] ED Patient Summaryon 022 ED Patient Summary [facility] Emergency Department Discharge Instructions [address] [place] [address] \.br\(Patient Copy)\.br\ \.br\Name: KING DUNNE Selina : 2000 \.br\Allergies: No Known Medication Allergies\.br\Diagnosis : Diagnoses This Visit\.br\ Headache ([id number])\.br\.b r\.br\ \.br\ Visit Date: 07/26/2021 17:34:59 \.br\ Current Date Time: 07/26/2021 20:16:20 \.br\Address: [address] [place] [address] \.br\ \.br\ \.br\Primary Care Provider: \.br\Name: NO FAMILY PHYSICIAN, 837\.br\Phone: \.br\ \.br\Emergency Department Care Providers: \.br\ Primary Physician: MARGARITA KIMBROUGH MD \.br\ \.br\ \.br\.br\Thank you for choosing [facility] for your emergency care. You are very important to us. Our goal is to demonstrate our high quality medical care, and provide you with a very good patient experience.\.br\.br\Yo u may receive a survey about our service. Please take the time to complete the survey and return it so we can continue to enhance our service.\.br\.br\Thank you again for allowing the [facility] Emergency Department to care for your medical needs. If you have questions about your care or follow up information please contact us at [phone].\.br\.br\ Follow-Up Instructions\.br\ \.br\KING SHAW has been given these follow-up instructions:\.br\.br\ Patient Education Materials\.br\ \.br\KNIG DUNNE has been given the following patient education materials:\.br\.br\ \.br\BEFORE YOU LEAVE\.br\.br\Set up your [facility] [employer] account!\.br\ \.br\[employer] is a secure, online health management tool that connects you to portions of your hospital-based electronic medical record, allowing you to see test results, manage appointments, access discharge care instructions and much more.\.br\ \.br\You can access [employer] from a computer, tablet or smartphone. Enrollment/registration is required. If you do not have a [employer] account, please provide us with an email address before you leave so that we may set up an account for you.\.br\ \.br\New to [employer]!\.br\You may now securely connect some of the health management apps you use (e.g., fitness trackers, dietary trackers, etc.) to your health record in [facility] [employer]. This new feature provides expanded access to your health and wellness data, which will help you and your care team make informed decisions about your health care. \.br\If you are interested in using a health management pat not currently connected to [employer], contact a Community Director at [phone] or [email or web address]. We will determine if the pat meets the technical requirements to connect to [facility] [employer] and assure the security of your private health information.\.br\ \.br\ Medication Information\.br\ \.br\KING MONTES has been given the following medication information:\.br\No Discharge Medications. \.br\.br\Understanding your home medicine is important to keeping you healthy. If you are taking medications that are not on the preceding list, please call your doctor to see if you are to continue that medication. It is important that you do not skip or make up doses. If you are ordered an antibiotic, finish taking all the medicine, unless your doctor tells you otherwise. Call your doctor if you have questions or problems. Take the medicine list with you to all follow up appointments.\.br\ \.br\If you or a loved one is struggling with a mental health or substance abuse issue, please call [facility] at [phone] or the National Suicide Prevention Lifeline at .\.br\ \.br\.br\ \.br\ \.br\UZAIR Tran RILEY A, have received the follow-up provider(s) list, medication information and patient education materials/instructions and have verbalized understanding.\.br\ \.br\ \.br\Patient Signature \.br\Date \.br\Time \.br\ \.br\ \.br\Pr ovider Signature \.br\Date \.br\Time Normal [facility] COVID-19 Molecular SWEDon SARS-CoV-2 (COVID-19) RNA ROCCO+probe Ql (Unsp spec) Positive Abnormal [facility] Comment on above: Result Comment: This assay is designed to detect the RdRp target of SARS-CoV-2 using rapid molecular isothermal amplification technology. A Negative result does not preclude the possibility of COVID 19 infection since the adequacy of sample collection and/or low viral burden may result in the presence of viral nucleic acids below the analytical sensitivity of this test method. Test results should be used along with other clinical and laboratory data in making the diagnosis. This test has received FDA Emergency Use Authorization and has been verified by [facility] Microbiology laboratory. This test is only authorized for the duration of the declaration and circumstances that exist to justify the authorization of the emergency use of the in vitro diagnostic tests for the detection of SARS-CoV-2 virus and/or diagnosis of COVID-19 infection under section 564(b)(1) of the Act. 21 U.S.C. 360bbb-3(b)(1), unless the authorization is terminated or revoked sooner. This testing was performed in the [facility] laboratory located at [[place] [address]] Performed By: #### C D:[id number] #### [facility] [address] [place] [address] House Parent: Theo Dickson MD ED Patient Summaryon 022 ED Patient Summary [facility] Emergency Department Discharge Instructions [address] [place] [id number] \.br\(Patient Copy)\.br\ \.br\Name: KING DUNNE : 2000 \.br\Allergies: No Known Medication Allergies\.br\Diagnosis : Diagnoses This Visit\.br\ Body aches ([id number])\.br\ Chills ([id number])\.br\ COVID-19 (U07.1)\.br\ Sore throat - Adult ([id number])\.br\.b r\.br\ \.br\ Visit Date: 06/01/2021 13:17:00 \.br\ Current Date Time: 06/01/2021 14:30:16 \.br\Address: [address] [place] [address] \.br\ \.br\ \.br\Primary Care Provider: \.br\Name: NO FAMILY PHYSICIAN, 837\.br\Phone: \.br\ \.br\Emergency Department Care Providers: \.br\ Primary Physician: RICK GUIDO DO \.br\ \.br\ \.br\.br\Thank you for choosing [facility] for your emergency care. You are very important to us. Our goal is to demonstrate our high quality medical care, and provide you with a very good patient experience.\.br\.br\Yo u may receive a survey about our service. Please take the time to complete the survey and return it so we can continue to enhance our service.\.br\.br\Thank you again for allowing the [facility] Emergency Department to care for your medical needs. If you have questions about your care or follow up information please contact us at [phone].\.br\.br\ Follow-Up Instructions\.br\ \.br\KING SHAW has been given these follow-up instructions:\.br\.br\ \.br\With: Address: When: \.br\ANGELA ROSARIO, Emergency Medicine, Internal Medicine [address] [place] [address]\.br\[phone] Business (1) Within 3 to 5 days \.br\.br\.br\.br\.b r\Patient Education Materials\.br\ \.br\KING DUNNE has been given the following patient education materials:\.br\.br\10 Things to Do When You Have COVID-19\.br\ Stay home. Don't go to school, work, or public areas. And don't use public transportation, ride-shares, or taxis unless you have no choice. Leave your home only if you need to get medical care. But call the doctor's office first so they know you're coming. And wear a cloth face cover. \.br\ Ask before leaving isolation. Talk with your doctor or other health professional about when it will be safe for you to leave isolation. \.br\ Wear a cloth face cover when you are around other people. It can help stop the spread of the virus when you cough or sneeze. \.br\ Limit contact with people in your home. If possible, stay in a separate bedroom and use a separate bathroom. \.br\ Avoid contact with pets and other animals. If possible, have a friend or family member care for them while you're sick. \.br\ Cover your mouth and nose with a tissue when you cough or sneeze. Then throw the tissue in the trash right away. \.br\ Wash your hands often, especially after you cough or sneeze. Use soap and water, and scrub for at least 20 seconds. If soap and water aren't available, use an alcohol-based hand social worker school. \.br\ Don't share personal household items. These include bedding, towels, cups and glasses, and eating utensils. \.br\ Clean and disinfect your home every day. Use household computer security manager or disinfectant wipes or sprays. Take special care to clean things that you grab with your hands. These include doorknobs, remote controls, phones, and handles on your refrigerator and microwave. And don't forget countertops, tabletops, bathrooms, and computer keyboards. \.br\ Take acetaminophen (Tylenol) to relieve fever and body aches. Read and follow all instructions on the label. \.br\Current as of: February 09, 2020 Content Version: 12.7\.br\? [employer]. \.br\Care instructions adapted under license by your healthcare professional. If you have questions about a medical condition or this instruction, always ask your healthcare professional. [employer] disclaims any warranty or liability for your use of this information.\.br\.br\ \.br\BEFORE YOU LEAVE\.br\.br\Set up your [facility] [employer] account!\.br\ \.br\[employer] is a secure, online health management tool that connects you to portions of your hospital-based electronic medical record, allowing you to see test results, manage appointments, access discharge care instructions and much more.\.br\ \.br\You can access [employer] from a computer, tablet or smartphone. Enrollment/registration is required. If you do not have a [employer] account, please provide us with an email address before you leave so that we may set up an account for you.\.br\ \.br\New to [employer]!\.br\You may now securely connect some of the health management apps you use (e.g., fitness trackers, dietary trackers, etc.) to your health record in [facility] [employer]. This new feature provides expanded access to (more content not included)... Normal [facility] ED Physician Reporton 2021 ED Physician Report Patient: LOREN DUNNE Age: 20 years Sex: Male : 2000 Associated Diagnoses: COVID-19 Author: RICK GUIDO DO Basic Information History source: Patient. Arrival mode: Per Nursing Notes. History limitation: None. Additional information. .ed_ti History of Present Illness The patient presents with feeling sick. The onset was 5 days ago. The course/duration of symptoms is constant. Associated symptoms: cough, fever, chills, diarrhea, body aches and cough , denies chest pain and denies shortness of breath. This is an 20 y/o male who presents to the ED for an evaluation of a sore throat, chills, and diarrhea onset 5 days ago. Pt reports that he could not go to work today because he was not feeling well. Pt states that he was exposed to COVID at work because multiple people at work had COVID. Pt is c/o associated body aches, chills, and a cough. He denies SOB, CP, and generalized weakness. Pt has voiced no other complaints, symptoms, or concerns at this time. She says he does not feel that he needs any testing or work-up but he does need a note because of his Covid status. Review of Systems Constitutional symptoms: Negative except as documented in HPI. Skin symptoms: Negative except as documented in HPI. Eye symptoms: Negative except as documented in HPI. ENMT symptoms: Negative except as documented in HPI. Respiratory symptoms: Negative except as documented in HPI. Cardiovascular symptoms: Negative except as documented in HPI. Gastrointestinal symptoms: Negative except as documented in HPI. Musculoskeletal symptoms: Negative except as documented in HPI. Health Status Allergies: Allergic Reactions (Selected) No Known Medication Allergies. Medications: Per nurse's notes. Immunizations: Per nurse's notes. Menstrual history: Per nurse's notes. Past Medical/ Family/ Social History Medical history: No active or resolved past medical history items have been selected or recorded., The patient's available past medical records and past encounters were reviewed. Summary of pertinent elements include: Confirms past medical history. Surgical history: No active procedure history items have been selected or recorded., Reviewed as documented in chart. Family history: No family history items have been selected or recorded.. Social history: Reviewed as documented in chart. Problem list: No qualifying data available , per nurse's notes. Physical Examination Vital Signs Vital Signs 06/01/2021 13:30 EST Temperature Oral 36.7 degC NORMAL Peripheral Pulse Rate 112 bpm HI Respiratory Rate 18 br/min NORMAL Systolic Blood Pressure 110 mmHg NORMAL Diastolic Blood Pressure 76 mmHg NORMAL SpO2 100 % NORMAL Oxygen Therapy Room air Weight Measured Type of Scale Standing Scale Height/Length Dosing 185.42 cm Weight Dosing 59.1 kg Body Mass Index Dosing 17 . Per nurse's notes. Oxygen saturation. General: Alert, Awake. Skin: Warm, intact, normal for ethnicity. Head: Normocephalic, atraumatic. Neck: Supple, trachea midline, no JVD. Eye: Extraocular movements are intact, normal conjunctiva. Ears, nose, mouth and throat: Tympanic membranes clear, oral mucosa moist, no pharyngeal erythema or exudate. Cardiovascular: Regular rate and rhythm, Normal peripheral perfusion, equal pulses. Respiratory: Respirations are non-labored, breath sounds are equal, Symmetrical chest wall expansion. Gastrointestinal: Soft, Non distended, Normal bowel sounds. Back: Normal alignment, no step-offs. Neurological Alert and oriented to person, place, time, and situation, No focal neurological deficit observed. Procedure Procedure notes: No procedures were required during this encounter. Medical Decision Making Rationale: The patient was seen and triaged, the vitals and nursing notes were reviewed. After triage, I performed a H&P and obtained additional elements of the medical record. IV's, oxygen, monitors, labs, and imaging were ordered and reviewed as clinically indicated. . Documents reviewed: Emergency department nurses' notes, emergency department records, prior records. Results review: All Results 06/01/2021 14:10 EST Consent Forms No Photo ID Insurance Consent Forms General Consent 06/01/2021 14:01 EST Emergency Room Report .JA Simple Encounter Level 4's or 5's (In Progress) 06/01/2021 13:55 EST ED Assessment Adult - Text 06/01/2021 13:35 EST ED Nrsing Adlt Triage Sep Scrning - Text 06/01/2021 13:32 EST ED Emergency Severity Index Adult-Text 06/01/2021 13:30 EST ED Triage Adult-Text 06/01/2021 13:55 EST Immunizations Current Unknown Last Tetanus Unknown Airway Normal Breathing Normal Circulation Normal Meds Triage NA Pain Symptoms Self Report Yes, able to self report Pain Symptoms. Yes Unable to Self Report Pain No Primary Pain Location Generalized Primary Pain Quality Aching VAS Pain Scale Age VAS (10 yrs (more content not included)... Normal [facility] ED Progress Noteon 2 ED Progress Note 20 y/o male AxOx3 presented to ED from home c/o body aches, sore throat, chills, cough, and nausea. Pt tested postiive for COVID today, states he developed these symptoms x4 days ago. Pt denies chest pain, SOB, diarrhea. Pt provocative test 99% on RA -Dr Guido notified Dr Guido at bedside 1423-pt given prescription, work note, copy of covid test, and discharge instructions, verbalized understanding, ambulated to exit Normal [facility] Primary Care Visiton 020 Primary Care Visit Diagnosis/Problems Health Maintenance/Risks Well child visit (V20.2) (Z00.129) Assessed Viral gastroenteritis (008.8) (A08.4) he is not dehydrated and otherwise non toxic. I reassured that this hsould resolve by the end of this week. Drink plenty of fluids and avoid caffein and spicey foods until better History of Present Illness KING DUNNE presents with complaints of sudden onset of intermittent episodes of moderate epigastric abdominal pain, described as crampy Episodes started 1 week ago (his father had similar symptoms the week before) Associated symptoms include no nausea, no vomiting, no diarrhea, no fever, no hematemesis, no melena and no bloody stool. Review of Systems Constitutional: no fever. Cardiovascular: no chest pain. Respiratory: no cough. All other systems have been reviewed and are negative for complaint. 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) Resolved Date: 11 Nov 2013 Added by Problem List Migration; 2013-01-18; Moved to [facility] Apr 18 2013 4:02PM History of Headache disorder (784.0) (R51) History of concussion (V15.52) (Z87.820) Hospitalized History of gastroesophageal reflux (GERD) (V12.79) (Z87.19) History of head injury (V15.59) (Z87.828) History of Stomach problems (536.9) (K31.9) Hospitalized History of Trouble in sleeping (780.50) (G47.9) Surgical History Problems History of Complete Colonoscopy and Endoscopy Family History Other Family history of arthritis (V17.7) (Z82.61) At a young age Family history of asthma (V17.5) (Z82.5) Family history of bleeding disorder (V18.3) (Z83.2) Family history of cardiac disorder (V17.49) (Z82.49) Family history of depression (V17.0) (Z81.8) Family history of diabetes mellitus (V18.0) (Z83.3) Family history of hyperlipidemia (V18.19) (Z83.438) Family history of hypertension (V17.49) (Z82.49) Family history of myocardial infarction (V17.3) (Z82.49) Social History Problems Denied: History of Alcohol use (V49.89) (Z72.89) Household composition Lives with mom age 32, stepfather, brother, and sister ages 8 AND 6. 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 Student [employer]--5th grade Denied: History of Tobacco use Current Meds Medication NameInstruction Lactose Intolerance CAPS Omeprazole TBEC Allergies Medication No Known Drug Allergies Recorded By: Karen Harrington; 11/11/2013 11:39:51 AM Vitals Vital Signs Recorded: [id number] 03:09PM Tfxowsrx845 Avzykmmlw86 Height6 ft 0.25 in 2-20 Stature Sszivndknt53 % Kplmva743 lb 2-20 Weight Hzzwcgidwz75 % BMI Vxfoqcqtki20.16 BMI Percentile1 % BSA Calculated1.72 Physical Exam Constitutional - Well developed, well nourished, well hydrated and no acute distress. Vital signs reviewed. Head and Face - Normocephalic, atraumatic. Eyes - No redness, edema or visible abnormality of conjunctiva or lids. Neck - Full range of motion. No significant adenopathy. Pulmonary - normal respiratory effort. Lungs are clear without rales, rhonchi or wheezing. Cardiovascular - Regular rate and rhythm. No significant murmur. Abdomen - Abnormal exam of abdomen. (soft, diffuse tender, hypertympanic, and increased bowel sounds. No rebound). Skin - No significant rash or lesions. Psychiatric - Mood and affect: Normal. Signatures Electronically signed by : Alexx Reed MD,; Jun 25 2019 3:16PM EST (Author) Normal DERRICK [place] 01-30-2018 CNOV Office Visit (DER[facility]) MARÍA CarterKING ([id number]) 02 MDate Time Provider Department01/30/18 1:00 PM CESIA DEL TORO (CUSTOMER ENGAGEMENT SPECIALIST) [facility] During your visit today, we recorded the following information about you:Cesia Del Toro APRN.ROBERT 01/30/2018 1:30 PM SignedHPI:King Dunne is a 17 year old year old male who presents today with Mother.Patient presents with:AcneParent and/or pt feel pt has ImprovedAll medications used for this condition: tretinoinBath/Shower: DailySoap: PanoxylMoisturizer: Neutrogena sample that they were given in officeLocation: face, neck, backSeverity:10 being the worst:5/10 as reported by: selfAssociated Symptoms:DeniesGoals for this appointment : Patient would like to review treatment progress.Has not been using selenium sulfide shampoo as directed.There were no vitals taken for this visit.No prescriptions on file.Allergies:Patient has no known allergies.Past Medical History:No past medical history on file.No past surgical history on file.Review of Systems:GENERAL: No fevers or irritability.Normal sleep, appetite and activitySKIN: Negative for lesions, rash, and itching.Physical Examination:General appearance: well appearing, alert, in no acute distressMood/Affect:Ple asantScalp:ClearFace/He ad: erythematous macules and many comedone and only few smallerythematous papulesEyes: Lids Clear, sclera whiteOral: lips pink and moistNeck: left posterior neck - 3 mm pink papuleTrunk/Chest: few erythematous papulesBack: upper may comedones and few erythematous papulesEncounter Diagnosis ICD-10-CM1. Acne vulgaris L70.0wart on neck improvedAssessment/Plan :Plan:- AM wash face daily with mild soap and apply thin film of clindamycin lotion.In the shower, wash affected areas daily with benzoyl peroxide cleanser.- Apply chocolate chip sized amount of tretinoin cream to affected areas everyother HS. Increase to chocolate chip sized amount every HS as tolerated.- In shower, apply selenium sulfide shampoo for 5-10 minutes to scalp andshampoo out with your regular shampoo. Repeat 2-3 x per week.Pt Education:- Etiology of acne, and treatment options including risks and benefits werediscussed. Cautioned against manipulating lesions.- Handouts given for daily plan for medications, cleansers, moisturizers andsunscreens. Understanding verbalized by parent and patient.- Medication precautions discussed including, scaling, burning,photosensitivit y, and bleaching clothes.- The majority of time, greater than 50% of the 15 minute visit was spent oncounseling and coordination of care of this patient and /or family member.Follow Up: yearly and PRNMary Ngoc Del Toro APRN.Ariadna Del Toro APRN.CUSTOMER ENGAGEMENT SPECIALIST 01/30/2018 1:30 PM SignedAcne CareIn the Morning- Wash with mild soap and pat dry. (e.g. Cetaphil or Dove)- Wash off at bedtime.- Avoid sun exposure, wear protective clothing, and sunscreen. Moisturize asneeded. Sunscreens and moisturizers should all be water based, oil free ornon-comedogenic. In the Afternoon as needed - Wash face with mild soap (Dove for sensitive skin or Cetaphil) ifneeded. May use salicylic acid pads (Stridex) after sports. Moisturize withwater based moisturizers with sunscreen as needed.At Bedtime - Apply OTC selenium sulfide shampoo (dark blue bottle of Head ANDShoulders or Selsun Blue) to scalp for 5 minutes then shampoo off. Repeat 2-3times per week- In shower, wash affected areas with over the counter benzoyl peroxidecleanser (Panoxyl 6-10%). Caution may bleach towels and wash cloths. - Apply pea to chocolate chip sized amount of tretinoin cream toaffected areas (forehead, cheeks, chin and/or back) at bedtime. May start withpea sized amount every other night and increase as tolerated to chocolate chipsized nightly. Should be dry and need water based or oil free moisturizerdaily.a. Do not use as a zit or spot treatment.b. Do not apply to wet skin.c. Do not apply by eyes, nasal creases, and corners of the mouth.d. Wash off in morning.Note: Popping pimples can add dirt from under fingernails, increaseinflammation and can lead to scarring. When washing face be gentle and usefingertips.We are trying to order the most cost efficient medication. If your out ofpocket expenses are too much, please let us know. Insurance companies arechanging the amount they pay toward medication all the time, and pharmaciescharge different amounts. You can also go to the website [employer] to findlowest prices.Referring Provider: SELF [[id number]]Allergies As of Date: 01/30/2018(No Known Allergies)Date Reviewed: 01/30/2018Reviewed by: Kiki Grijalva MA - Fully AssessedReason for Visit: Acne [922]Primary Visit Diagnosis:Acne vulgaris [L70.0]Prescriptions as of 01/30/2018 Sig: SERTRALINE 25 MG TABLET TRETINOIN 0.05 % TOPICAL CREAM Apply pea sized amount to aff* PEDIASURE WITH FIBER ORAL LIQ* 3 cans per dayProblem List As Of Date 01/30/2018 Noted Resolved CONSTIPATION NOS [K59.00] INVALID FOR* RECTAL AND ANAL HEMORRHAGE [K62.5] INVALID FOR* Other instructions from your clinician: Acne Care In the Morning - Wash with mild soap and pat dry. (e.g. Cetaphil or Dove) - Wash off at bedtime. - Avoid sun exposure, wear protective clothing, and sunscreen. Moisturize as needed. Sunscreens and moisturizers should all be water based, oil free or non-comedogenic. In the Afternoon as needed - Wash face with mild soap (Dove for sensitive skin or Cetaphil) if needed. May use salicylic acid pads (Stridex) after sports. Moisturize with water based moisturizers with sunscreen as needed. At Bedtime - Apply OTC selenium sulfide shampoo (dark blue bottle of Head AND Shoulders or Selsun Blue) to scalp for 5 minutes then shampoo off. Repeat 2-3 times per week - In shower, wash affected areas with over the counter benzoyl peroxide cleanser (Panoxyl 6-10%). Caution may bleach towels and wash cloths. - Apply pea to chocolate chip sized amount of tretinoin cream to affected areas (forehead, cheeks, chin and/or back) at bedtime. May start with pea sized amount every other night and increase as tolerated to chocolate chip sized nightly. Should be dry and need water based or oil free moisturizer daily. a. Do not use as a zit or spot treatment. b. Do not apply to wet skin. c. Do not apply by eyes, nasal creases, and corners of the mouth. d. Wash off in morning. Note: Popping pimples can add dirt from under fingernails, increase inflammation and can lead to scarring. When washing face be gentle and use fingertips. We are trying to order the most cost efficient medication. If your out of pocket expenses are too much, please let us know. Insurance companies are changing the amount they pay toward medication all the time, and pharmacies charge different amounts. You can also go to the website www.Sonda41 to find lowest prices.Letter TextDepartment of DermatologyHeber Valley Medical Center[address] [place], [place] [address]Db:[phone]: King Bailey Whom it May Concern:This is to confirm that the above patient, accompanied by his Mother, hasbeen under my care for a medical problem today. Thank you for yourcooperation in this matter.Thank you,Cesia Del Toro APRN.ROBERTEncounter Number: [id number] Status:Closed by CESIA SALDAÑA on 01/30/18 [facility] 01-30-2018 Protein mass conc HNO ID: [id number]: Cesia Grossman (Robert) SmithService: (none)Author Type: Clinical Nurse SpecialistType: Progress NotesFiled: 01/30/2018 1:30 PMNote Text:HPI:King Dunne is a 17 year old year old male who presents today with Mother.Patient presents with:AcneParent and/or pt feel pt has ImprovedAll medications used for this condition: tretinoinBath/Shower: DailySoap: PanoxylMoisturizer: Neutrogena sample that they were given in officeLocation: face, neck, backSeverity:10 being the worst:5/10 as reported by: selfAssociated Symptoms:DeniesGoals for this appointment : Patient would like to review treatmentprogress. Has not been using selenium sulfide shampoo as directed.There were no vitals taken for this visit.No prescriptions on file.Allergies:Patient has no known allergies.Past Medical History:No past medical history on file.No past surgical history on file.Review of Systems:GENERAL: No fevers or irritability.Normal sleep, appetite and activitySKIN: Negative for lesions, rash, and itching.Physical Examination:General appearance: well appearing, alert, in no acute distressMood/Affect:Ple asantScalp:ClearFace/He ad: erythematous macules and many comedone and only few smallerythematous papulesEyes: Lids Clear, sclera whiteOral: lips pink and moistNeck: left posterior neck - 3 mm pink papuleTrunk/Chest: few erythematous papulesBack: upper may comedones and few erythematous papulesEncounter Diagnosis ICD-10-CM1. Acne vulgaris L70.0wart on neck improvedAssessment/Plan :Plan:- AM wash face daily with mild soap and apply thin film of clindamycinlotion. In the shower, wash affected areas daily with benzoyl peroxidecleanser.- Apply chocolate chip sized amount of tretinoin cream to affected areasevery other HS. Increase to chocolate chip sized amount every HS astolerated.- In shower, apply selenium sulfide shampoo for 5-10 minutes to scalpand shampoo out with your regular shampoo. Repeat 2-3 x per week.Pt Education:- Etiology of acne, and treatment options including risks and benefitswere discussed. Cautioned against manipulating lesions.- Handouts given for daily plan for medications, cleansers, moisturizersand sunscreens. Understanding verbalized by parent and patient.- Medication precautions discussed including, scaling, burning,photosensitivit y, and bleaching clothes.- The majority of time, greater than 50% of the 15 minute visit was spenton counseling and coordination of care of this patient and /or familymember.Follow Up: yearly and PRNMary Ngoc Del Toro APRN.ROBERT Normal [facility] CNOVon 01-08-2018 CNOV Office Visit (DERMAP) KING BROUSSARD ([id number]) 02 MDate Time Provider Department01/08/18 8:00 AM CESIA DEL TORO ([facility] DER[facility] During your visit today, we recorded the following information about you:Cesia Del Toro APRN.CUSTOMER ENGAGEMENT SPECIALIST 01/08/2018 9:02 AM SignedHPI:King Dunne is a 17 year old male presents today with Mother.Patient presents with:LESION, SKINAcneSkin LesionDuration:< 2 yearsOnset:gradualFrequ ency:intermittent, progressiveAll medications used for this condition: OTC tag away x one month no improvementBath/Shower: Every other daySoap: Old Spice body washMoisturizer: DeniesLocation: Back of neckSeverity:10 being the worst:10/10 as reported by: momAssociated Symptoms:discharge, tenderness and changing colorsBleeds when picking at itAdditional CC: AcneDuration:3 yearsOnset:gradualFrequ ency:constantAll medications used for this condition: OTC face wash (Neutrogena)Location: face, neck, backSeverity:10 being the worst:8/10 as reported by: momAssociated Symptoms:tendernessGoal s for this appointment: Patient would like to discuss possible diagnosisand treatment plan.There were no vitals taken for this visit.sertraline (ZOLOFT) 25 mg tablettretinoin (RETIN-A) 0.05 % cream Apply pea sized amount to affected areas everyday at bedtime. Wash off in the morning.Lactose-Free Food with Fiber (PEDIASURE WITH FIBER) ORAL Liqd 3 cans per dayAllergies:ALLERGIESN o Known AllergiesHistories:No past surgical history on file.No past medical history on file.Infantile dermatology history: Diaper rashes; Yes Cradle cap; NoFamily History:Positive: eczema (Mother, siblings), acne-scarring, [id number] (Mother,Aunt, siblings)Denies: psoriasis, basal cell carcinoma, squamous cell carcinoma, melanoma,dysplastic nevi, asthma and seasonal allergiesLives with mom, step-dad, brothers, sisters and pets dog(s)Sports/Activies:N oDoing well in school: YesReview of Systems:GENERAL: No fevers or irritability.Normal sleep, appetite and activityRESPIRATORY: Negative for cough, wheezing or respiratory distress.GI:Negative for nausea, vomiting, abdominal pain, diarrhea, constipation,melena and hematocheziaMUSCULOSKEL ETAL: Negative for joint pain or swelling, back pain or muscle pain.SKIN: Negative for rash, and itching. Lesion on neck and acneHEMATOLOGY/LYMPHOLO GY: Negative for prolonged bleeding, bruising easily orswollen nodes.Physical Examination:General appearance: well appearing, alert, in no acute distressMood/Affect:Ple asantScalp:fine scaling throughout scalpFace/Head: multiple comedones, erythematous papulesEyes: Lids Clear, sclera whiteOral: lips pink and moistNeck: posterior - 7 x 8 mm hyperkeratotic papule (1)Trunk/Chest: few comedonesBack: horizontal pink thin plaques and back comedones and small erythematouspapules (many)Buttock/Groin/Gen alfredo: not examinedRUE: hand clearLUE: same as aboveDiagnosis:Encounte r Diagnosis ICD-10-CM1. Viral warts, unspecified type B07.9 posterior neck2. Acne vulgaris L70.0 tretinoin (RETIN-A) 0.05 % cream mild on face and back. many comedonesAssessment/Omar n:Plan:- Risks and benefits discussed. Informed consent obtained. Verified rightpatient, right procedure, right site by Cesia Del Toro APRN.CNS at 8:50 am.Treated with liquid nitrogen 15 pulses and repeated today x 1 wart. Patienttolerated well.- Instructed to wait 3-5 days and then do nightly wart treatment until clear.May apply just duct tape for 1-2 additional weeks.- In the shower, wash affected areas daily with benzoyl peroxide cleanser.- Apply pea sized amount of tretinoin cream to affected areas every other HS.Increase to chocolate chip sized amount every HS as tolerated.- In shower, apply selenium sulfide shampoo for 5-10 minutes to scalp andshampoo out with your regular shampoo. Repeat 2-3 x per week.Pt Education:- Etiology of warts, acne, and treatment options including risks and benefitswere discussed. Cautioned against manipulating lesions.- Handouts given for daily plan for medications, cleansers, moisturizers andsunscreens. Understanding verbalized by mother and patient.- Medication precautions discussed including, scaling, burning,photosensitivit y, and bleaching clothes.- Answered questions concerning OTC wart and acne products.- Risk of scarring with progressive cystic acne discussed.- The majority of time, greater than 50% of the 25 minute visit was spent oncounseling and coordination of care of this patient and /or family member.Follow Up:- Return to clinic in 3 weeks if warts persist.- 2 months for follow up Tiffanie Del Toro APRN.Ariadna Del Toro APRN.ROBERT 01/08/2018 8:51 AM AddendumHome Wart Treatment for common wartsIf treated with LN2, should wait 3-4 days after freezing treatment to begin:1. Soak effected area in warm water for 15-20 minutes or after evening showeror bath.2. File wart with emery board to file down thick skin on wart. Make sure touse emery board for only this purpose. Break off used section and throw away.If flat skip to below.3. Apply the 40% salicylic wart medication to only the wart. See list below prvnct-imy-qkyeiyv examples: Mediplast (cut pad to size of wart with cuticle scissors) usually available in [facility]. Duofilm (cut pad to size with cuticle scissors) Dr. Rodríguez's one step callous remover [facility] drugstore brand wart remover Wart stick (apply with toothpick)If too small to apply to just the wart without getting on the surrounding skin,skip to below4. Cover with duct tape. Should be covered since they are contagious.5. Repeat nightly until clear and then two additional weeks of duct tape only.6. Do not apply to face.7. Call office if you have any questions.Acne CareIn the Morning- Wash with mild soap and pat dry. (e.g. Cetaphil or Dove)- Avoid sun exposure, wear protective clothing, and sunscreen. Moisturize asneeded. Sunscreens and moisturizers should all be water based, oil free ornon-comedogenic. In the Afternoon as needed - Wash face with mild soap (Dove for sensitive skin or Cetaphil) ifneeded. May use salicylic acid pads (Stridex) after sports. Moisturize withwater based moisturizers with sunscreen as needed.At Bedtime - Apply OTC selenium sulfide shampoo (dark blue bottle of Head ANDShoulders or Selsun Blue) to scalp for 5 minutes then shampoo off. Repeat 2-3times per week- In shower, wash affected areas with over the counter benzoyl peroxidecleanser (Panoxyl 6-10%). Caution may bleach towels and wash cloths. - Apply pea to chocolate chip sized amount of tretinoin cream toaffected areas (forehead, cheeks, chin and/or back) at bedtime. May start withpea sized amount every other night and increase as tolerated to chocolate chipsized nightly. Should be dry and need water based or oil free moisturizerdaily.a. Do not use as a zit or spot treatment.b. Do not apply to wet skin.c. Do not apply by eyes, nasal creases, and corners of the mouth.d. Wash off in morning.Note: Popping pimples can add dirt from under fingernails, increaseinflammation and can lead to scarring. When washing face be gentle and usefingertips.We are trying to order the most cost efficient medication. If your out ofpocket expenses are too much, please let us know. Insurance companies arechanging the amount they pay toward medication all the time, and pharmaciescharge different amounts. You can also go to the website www.Sonda41 to findlowest prices.Referring Provider: SELF [[id number]]Allergies As of Date: 01/08/2018(No Known Allergies)Date Reviewed: 01/08/2018Reviewed by: Cesia Grossman (Robert) Alverto - Fully AssessedReason for Visit: LESION, SKIN [936] Acne [922]Reason For Visit History RecordedPrimary Visit Diagnosis:Viral warts, unspecified type [B07.9] Comment:posterior neck Other Visit Diagnosis:Acne vulgaris [L70.0] Comment:mild on face and back. many comedonesOrder(s):treti noin (RETIN-A) 0.05 % creamApply pea sized amount to affected areas every day at bedtime. Wash off in the morning.Disp: 45 gRfl: 11Prescriptions as of 01/08/2018 Sig: SERTRALINE 25 MG TABLET TRETINOIN 0.05 % TOPICAL CREAM Apply pea sized amount to aff* PEDIASURE WITH FIBER ORAL LIQ* 3 cans per dayProblem List As Of Date 01/08/2018 Noted Resolved CONSTIPATION NOS [K59.00] INVALID FOR* RECTAL AND ANAL HEMORRHAGE [K62.5] INVALID FOR* Other instructions from your clinician: Home Wart Treatment for common warts If treated with LN2, should wait 3-4 days after freezing treatment to begin: 1. Soak effected area in warm water for 15-20 minutes or after evening shower or bath. 2. File wart with emery board to file down thick skin on wart. Make sure to use emery board for only this purpose. Break off used section and throw away. If flat skip to below. 3. Apply the 40% salicylic wart medication to only the wart. See list below for zmp-vye-emnquhi examples: Mediplast (cut pad to size of wart with cuticle scissors) usually available in [facility]. Duofilm (cut pad to size with cuticle scissors) Dr. Rodríguez's one step callous remover [facility] drugstore brand wart remover Wart stick (apply with toothpick) If too small to apply to just the wart without getting on the surrounding skin, skip to below 4. Cover with duct tape. Should be covered since they are contagious. 5. Repeat nightly until clear and then two additional weeks of duct tape only. 6. Do not apply to face. 7. Call office if you have any questions. Acne Care In the Morning - Wash with mild soap and pat dry. (e.g. Cetaphil or Dove) - Avoid sun exposure, wear protective clothing, and sunscreen. Moisturize as needed. Sunscreens and moisturizers should all be water based, oil free or non-comedogenic. In the Afternoon as needed - Wash face with mild soap (Dove for sensitive skin or Cetaphil) if needed. May use salicylic acid pads (Stridex) after sports. Moisturize with water based moisturizers with sunscreen as needed. At Bedtime - Apply OTC selenium sulfide shampoo (dark blue bottle of Head AND Shoulders or Selsun Blue) to scalp for 5 minutes then shampoo off. Repeat 2-3 times per week - In shower, wash affected areas with over the counter benzoyl peroxide cleanser (Panoxyl 6-10%). Caution may bleach towels and wash cloths. - Apply pea to chocolate chip sized amount of tretinoin cream to affected areas (forehead, cheeks, chin and/or back) at bedtime. May start with pea sized amount every other night and increase as tolerated to chocolate chip sized nightly. Should be dry and need water based or oil free moisturizer daily. a. Do not use as a zit or spot treatment. b. Do not apply to wet skin. c. Do not apply by eyes, nasal creases, and corners of the mouth. d. Wash off in morning. Note: Popping pimples can add dirt from under fingernails, increase inflammation and can lead to scarring. When washing face be gentle and use fingertips. We are trying to order the most cost efficient medication. If your out of pocket expenses are too much, please let us know. Insurance companies are changing the amount they pay toward medication all the time, and pharmacies charge different amounts. You can also go to the website www.Sonda41 to find lowest prices.Prescriptions ordered this encounter Disp Refills Start End TRETINOIN 0.05 % TOPICAL CREAM 45 g 11 01/08/2018 Cmt: Avoid eyelids. Sig: Apply pea sized amount to affected areas every day at bedtime. Wash off in the morning.Medications Discontinued During This Encounter MIRALAX 100 % ORAL POWDER 1 francesca* 4 07/05/2006 01/08/2018 Class: Print RX Route: ORAL Sig: Give 2 teaspoons in 4 ounces of liquid once daily as instructed Disc: Course of therapy completedEncounter Number: [id number] Status:Closed by CESIA SALDAÑA on 01/08/18 Normal [facility] PROGRESSon 01-08-2018 Protein mass conc HNO ID: [id number]: Cesia Grossman (Robert) AlvertoService: (none)Author Type: Clinical Nurse SpecialistType: Progress NotesFiled: 01/08/2018 9:02 AMNote Text:HPI:King Dunne is a 17 year old male presents today with Mother.Patient presents with:LESION, SKINAcneSkin LesionDuration:< 2 yearsOnset:gradualFrequ ency:intermittent, progressiveAll medications used for this condition: OTC tag away x one month noimprovementBath/Showe r: Every other daySoap: Old Spice body washMoisturizer: DeniesLocation: Back of neckSeverity:10 being the worst:10/10 as reported by: momAssociated Symptoms:discharge, tenderness and changing colorsBleeds when picking at itAdditional CC: AcneDuration:3 yearsOnset:gradualFrequ ency:constantAll medications used for this condition: OTC face wash (Neutrogena)Location: face, neck, backSeverity:10 being the worst:8/10 as reported by: momAssociated Symptoms:tendernessGoal s for this appointment: Patient would like to discuss possiblediagnosis and treatment plan.There were no vitals taken for this visit.sertraline (ZOLOFT) 25 mg tablettretinoin (RETIN-A) 0.05 % cream Apply pea sized amount to affected areasevery day at bedtime. Wash off in the morning.Lactose-Free Food with Fiber (PEDIASURE WITH FIBER) ORAL Liqd 3 cans perdayAllergies:ALLERGI Tari Known AllergiesHistories:No past surgical history on file.No past medical history on file.Infantile dermatology history: Diaper rashes; Yes Cradle cap; NoFamily History:Positive: eczema (Mother, siblings), acne-scarring, [id number]([place], Aunt, siblings)Denies: psoriasis, basal cell carcinoma, squamous cell carcinoma,melanoma, dysplastic nevi, asthma and seasonal allergiesLives with mom, step-dad, brothers, sisters and pets dog(s)Sports/Activies:N oDoing well in school: YesReview of Systems:GENERAL: No fevers or irritability.Normal sleep, appetite and activityRESPIRATORY: Negative for cough, wheezing or respiratory distress.GI:Negative for nausea, vomiting, abdominal pain, diarrhea, constipation,melena and hematocheziaMUSCULOSKEL ETAL: Negative for joint pain or swelling, back pain or musclepain.SKIN: Negative for rash, and itching. Lesion on neck and acneHEMATOLOGY/LYMPHOLO GY: Negative for prolonged bleeding, bruising easily orswollen nodes.Physical Examination:General appearance: well appearing, alert, in no acute distressMood/Affect:Ple asantScalp:fine scaling throughout scalpFace/Head: multiple comedones, erythematous papulesEyes: Lids Clear, sclera whiteOral: lips pink and moistNeck: posterior - 7 x 8 mm hyperkeratotic papule (1)Trunk/Chest: few comedonesBack: horizontal pink thin plaques and back comedones and smallerythematous papules (many)Buttock/Groin/Gen alfredo: not examinedRUE: hand clearLUE: same as aboveDiagnosis:Encounte r Diagnosis ICD-10-CM1. Viral warts, unspecified type B07.9 posterior neck2. Acne vulgaris L70.0 tretinoin (RETIN-A) 0.05 % cream mild on face and back. many comedonesAssessment/Omar n:Plan:- Risks and benefits discussed. Informed consent obtained. Verified rightpatient, right procedure, right site by Cesia Del Toro APRN.CUSTOMER ENGAGEMENT SPECIALIST at 8:50 am.Treated with liquid nitrogen 15 pulses and repeated today x 1 wart.Patient tolerated well.- Instructed to wait 3-5 days and then do nightly wart treatment untilclear. May apply just duct tape for 1-2 additional weeks.- In the shower, wash affected areas daily with benzoyl peroxidecleanser.- Apply pea sized amount of tretinoin cream to affected areas every otherHS. Increase to chocolate chip sized amount every HS as tolerated.- In shower, apply selenium sulfide shampoo for 5-10 minutes to scalp andshampoo out with your regular shampoo. Repeat 2-3 x per week.Pt Education:- Etiology of warts, acne, and treatment options including risks andbenefits were discussed. Cautioned against manipulating lesions.- Handouts given for daily plan for medications, cleansers, moisturizersand sunscreens. Understanding verbalized by mother and patient.- Medication precautions discussed including, scaling, burning,photosensitivit y, and bleaching clothes.- Answered questions concerning OTC wart and acne products.- Risk of scarring with progressive cystic acne discussed.- The majority of time, greater than 50% of the 25 minute visit was spenton counseling and coordination of care of this patient and /or familymember.Follow Up:- Return to clinic in 3 weeks if warts persist.- 2 months for follow up Tiffanie Del Toro APRN.CUSTOMER ENGAGEMENT SPECIALIST Normal [facility] Culture Group A Strepon 03-28 Culture Group A Strep FINAL REPORT THROT No Group A Beta Streptococcus isolated Normal [facility] Comment on above: Performed By: #### [id number] ####[facility] [id number] [place] [address] Strep (GpA) Rapidon 04-23-20 17 Rapid strep test Negative Normal Negative [facility] Comment on above: Performed By: #### [id number] ####Melissa [address] [address] Culture Group A Strepon 12-26 Culture Group A Strep FINAL REPORT THROT No Group A Beta Streptococcus isolated Normal [facility] Comment on above: Performed By: #### [id number] ####[facility] [id number] [place] [address] [place] Teston 01-17-2017 [place] Test Negative Normal Negative [facility] Comment on above: Result Comment: Some segments of the population who contract Infectious Monodo not produce measureable levels of heterophile antibody.Approximately 50% of children under 4 years of age who haveIM, may test as IM heterophile negative. EBV-specificlaboratory tests may be helpful in these cases. Performed By: #### [id number] ####[facility] [id number] [place] [address] Strep (GpA) Rapidon 01-18-20 17 Rapid strep test Negative Normal Negative [facility] Comment on above: Performed By: #### [id number] ####[facility] [id number] [place] [address] Vital Signs Date Time Vital Sign Value Performing Clinician Facility 08-20-2023 12:28-0400 Blood Pressure Location [facility] 08-20-2023 12:28-0400 Body temperature 98.24 [degF] [facility] 08-20-2023 12:28-0400 Diastolic blood pressure 70 mm[Hg] [facility] 08-20-2023 12:28-0400 Heart rate 79 /min [facility] 08-20-2023 12:28-0400 SaO2% (BldA) [Mass fraction] 98 % [facility] 08-20-2023 12:28-0400 Systolic blood pressure 120 mm[Hg] [facility] 09-26-2022 14:04-0400 Body height 182.9 cm Bharathi Jackson MD Work Phone: [facility] 09-26-2022 14:04-0400 Body mass index (BMI) [Ratio] 19.94 kg/m2 Bharathi Jackson MD Work Phone: [facility] 09-26-2022 14:04-0400 Body temperature 98.6 [degF] Bharathi Jackson MD Work Phone: [facility] 09-26-2022 14:04-0400 Body weight 66.68 kg Bharathi Jackson MD Work Phone: [facility] 09-26-2022 14:04-0400 Diastolic blood pressure 64 mm[Hg] Bharathi Jackson MD Work Phone: [facility] 09-26-2022 14:04-0400 Heart rate 108 /min Bharathi Jackson MD Work Phone: [facility] 09-26-2022 14:04-0400 Respiratory rate 20 /min Bharathi Jackson MD Work Phone: [facility] 09-26-2022 14:04-0400 SaO2% (BldA) [Mass fraction] 98 % Bharathi Jackson MD Work Phone: [facility] 09-26-2022 14:04-0400 Systolic blood pressure 106 mm[Hg] Bharathi Jackson MD Work Phone: [facility] 09-18-2022 15:33-0400 Body height 182.9 cm Bharathi Jackson MD Work Phone: [facility] 09-18-2022 15:33-0400 Body mass index (BMI) [Ratio] 19.67 kg/m2 Bharathi Jackson MD Work Phone: [facility] 09-18-2022 15:33-0400 Body temperature 98.4 [degF] Bharathi Jackson MD Work Phone: [facility] 09-18-2022 15:33-0400 Body weight 65.77 kg Bharathi Jackson MD Work Phone: [facility] 09-18-2022 15:33-0400 Diastolic blood pressure 70 mm[Hg] Bharathi Jackson MD Work Phone: [facility] 09-18-2022 15:33-0400 Heart rate 84 /min Bharathi Jackson MD Work Phone: [facility] 09-18-2022 15:33-0400 Respiratory rate 18 /min Bharathi Jackson MD Work Phone: [facility] 09-18-2022 15:33-0400 SaO2% (BldA) [Mass fraction] 99 % Bharathi Jackson MD Work Phone: [facility] 09-18-2022 15:33-0400 Systolic blood pressure 110 mm[Hg] Bharathi Jackson MD Work Phone: [facility] 07-22-2022 13:25-0500 Diastolic blood pressure 80 mm[Hg] Lizeth Orzech [facility] 07-22-2022 13:25-0500 Mean blood pressure 99 mm[Hg] Lizeth Orzech [facility] 07-22-2022 13:25-0500 Systolic blood pressure 136 mm[Hg] Lizeth Orzech [facility] 07-22-2022 12:37-0500 Blood Pressure Location Lizeth Orzech [facility] 07-22-2022 12:37-0500 Body temperature 98.24 [degF] Lizeth Orzech [facility] 07-22-2022 12:37-0500 bodymassindex -1.82 Lizeth Orzech [facility] Comment on above: Result Comment: ^~:!ZScore [facility] 07-22-2022 12:37-0500 Diastolic blood pressure 66 mm[Hg] Lizeth Orzech [facility] 07-22-2022 12:37-0500 Heart rate 86 /min Lizeth Orzech [facility] 02-26-2023 12:37-0500 Height/Length Percentile 84.40 Lizeth Orzech [facility] Comment on above: Result Comment: ^~:!Percentile Source -[facility] [place] 07-22-2022 12:37-0500 Height/Length Z-Score 1.01 Lizeth Orzech [facility] Comment on above: Result Comment: ^~:!ZScore [facility] 07-22-2022 12:37-0500 Respiratory rate 14 /min Lizeth Orzech [facility] 07-22-2022 12:37-0500 SaO2% (BldA) [Mass fraction] 98 % Lizeth Orzech [facility] 07-22-2022 12:37-0500 Systolic blood pressure 164 mm[Hg] Lizeth Orzech [facility] 07-22-2022 12:37-0500 weight -0.68 Lizeth Orzech [facility] Comment on above: Result Comment: ^~:!Celso [facility] 07-22-2022 12:37-0500 Weight Percentile 24.80 % Lizeth Orzech [facility] Comment on above: Result Comment: ^~:!Percentile Source -[facility] [place] 06-25-2022 13:45-0500 Diastolic blood pressure 65 mm[Hg] Jose Castillo [facility] 06-25-2022 13:45-0500 Heart rate 84 /min Jose Varelae [facility] 06-25-2022 13:45-0500 Mean blood pressure 77 mm[Hg] Jose Varelae [facility] 06-25-2022 13:45-0500 Respiratory rate 18 /min Jose Castillo [facility] 06-25-2022 13:45-0500 SaO2% (BldA) [Mass fraction] 94 % Jose Anna [facility] 06-25-2022 13:45-0500 Systolic blood pressure 101 mm[Hg] Jose Anna [facility] 06-25-2022 13:00-0500 Diastolic blood pressure 80 mm[Hg] Jose Anna [facility] 06-25-2022 13:00-0500 Heart rate 106 /min Jose Anna [facility] 06-25-2022 13:00-0500 Mean blood pressure 92 mm[Hg] Jose Anna [facility] 06-25-2022 13:00-0500 Respiratory rate 16 /min Jose Anna [facility] 06-25-2022 13:00-0500 SaO2% (BldA) [Mass fraction] 96 % Jose Anna [facility] 06-25-2022 13:00-0500 Systolic blood pressure 116 mm[Hg] Jose Anna [facility] 06-25-2022 12:00-0500 Diastolic blood pressure 77 mm[Hg] Jose Anna [facility] 06-25-2022 12:00-0500 Heart rate 96 /min Jose Anna [facility] 06-25-2022 12:00-0500 Mean blood pressure 88 mm[Hg] Jose Anna [facility] 06-25-2022 12:00-0500 Systolic blood pressure 110 mm[Hg] Jose Anna [facility] 06-25-2022 10:32-0500 Body temperature 98.6 [degF] Jose Castillo [facility] 06-25-2022 10:32-0500 bodymassindex -1.93 Jose Castillo [facility] Comment on above: Result Comment: ^~:!ZScore [facility] 06-25-2022 10:32-0500 Heart rate 108 /min Jose Castillo [facility] 06-25-2022 10:32-0500 Height/Length Percentile 87.60 Jose Castillo [facility] Comment on above: Result Comment: ^~:!Percentile Source -[facility] [place] 06-25-2022 10:32-0500 Height/Length Z-Score 1.16 Jose Castillo [facility] Comment on above: Result Comment: ^~:!ZScore [facility] 06-25-2022 10:32-0500 Respiratory rate 28 /min Jose Castillo [facility] 06-25-2022 10:32-0500 weight -0.67 Jose Castillo [facility] Comment on above: Result Comment: ^~:!ZScore [facility] 06-25-2022 10:32-0500 Weight Percentile 25.11 % Jose Castillo [facility] Comment on above: Result Comment: ^~:!Percentile Source -[facility] [place] 06-24-2022 22:45-0500 Heart rate 75 /min Robert Stuart [facility] 06-24-2022 22:45-0500 Respiratory rate 18 /min Robert Stuart [facility] 06-24-2022 22:45-0500 SaO2% (BldA) [Mass fraction] 96 % Robert Stuart [facility] 06-24-2022 21:38-0500 Heart rate 115 /min Robert Davidson [facility] 06-24-2022 21:38-0500 Respiratory rate 25 /min Robert Davidson [facility] 06-24-2022 21:38-0500 SaO2% (BldA) [Mass fraction] 98 % Robert Davidson [facility] 06-24-2022 20:00-0500 Respiratory rate 28 /min Robert Davidson [facility] 06-24-2022 20:00-0500 SaO2% (BldA) [Mass fraction] 100 % Robert Davidson [facility] 06-24-2022 19:43-0500 Body temperature 97.16 [degF] Robert Davidson [facility] 06-24-2022 19:43-0500 bodymassindex -1.97 Robert Davidson [facility] Comment on above: Result Comment: ^~:!ZScore [facility] 06-24-2022 19:43-0500 Diastolic blood pressure 83 mm[Hg] Robert Davidson [facility] 06-24-2022 19:43-0500 Heart rate 126 /min Robert Davidson [facility] 06-24-2022 19:43-0500 Height/Length Percentile 88.77 Robert Davidson [facility] Comment on above: Result Comment: ^~:!Percentile Source [facility] 06-24-2022 19:43-0500 Height/Length Z-Score 1.21 Robert Davidson [facility] Comment on above: Result Comment: ^~:!ZScore [facility] 06-24-2022 19:43-0500 Systolic blood pressure 123 mm[Hg] Robert Davidson [facility] 06-24-2022 19:43-0500 weight -0.67 Robert Davidson [facility] Comment on above: Result Comment: ^~:!ZScore Source -[facility] 06-24-2022 19:43-0500 Weight Percentile 25.11 % Robert Davidson [facility] Comment on above: Result Comment: ^~:!Percentile Source -[facility] 06-15-2022 09:24-0500 9 1 Bharathi J Potoczak Work Phone: [facility] 1563 Work Phone: Comment on above: PHQ-9 TS 06-15-2022 09:21-0500 Body height 182.93 cm Bharathi J Potoczak Work Phone: [facility] 6153 Work Phone: 06-15-2022 09:21-0500 Body mass index (BMI) [Ratio] 19.11 kg/m2 Bharathi J Potoczak Work Phone: [facility] 6124 Work Phone: 06-15-2022 09:21-0500 Body surface area Derived from formula 1.84 m2 Bharathi J Potoczak Work Phone: [facility] 6115 Work Phone: 06-15-2022 09:21-0500 Body temperature 98.5 [degF] Bharathi J Potoczak Work Phone: [facility] 6156 Work Phone: 06-15-2022 09:21-0500 Body weight 63.96 kg Bharathi J Potoczak Work Phone: [facility] 6107 Work Phone: 06-15-2022 09:21-0500 Diastolic blood pressure 86 mm[Hg] Bharathi Wolfoczak Work Phone: [facility] 6115 Work Phone: 06-15-2022 09:21-0500 Heart rate 108 /min Bharathi Ralphzak Work Phone: [facility] 6115 Work Phone: 06-15-2022 09:21-0500 Respiratory rate 16 /min Bharathi Ralphzak Work Phone: [facility] 6115 Work Phone: 06-15-2022 09:21-0500 SaO2% (BldA) [Mass fraction] 98 % Bharathi Ralphzak Work Phone: [facility] 6115 Work Phone: 06-15-2022 09:21-0500 Systolic blood pressure 116 mm[Hg] Bharathi Ralphzak Work Phone: [facility] 6193 Work Phone: 06-15-2022 [id number] 80 1 Bharathi Ralphzak Work Phone: [facility] 6115 Work Phone: Comment on above: 07-16_SPerc 06-15-2022 09:210500 27 1 Bharathi Wolfoczak Work Phone: [facility] 6115 Work Phone: Comment on above: 07-16_WPerc 06-15-2022 09:210500 6 1 Bharathi Hurtado Potoczak Work Phone: [facility] 6115 Work Phone: Comment on above: BMIPerc Encounters Encounter Date Encounter Type Care Provider Facility Start: 08-20-2023 End: 08-21-2023 ambulatory Seth Amanda Facility:[facility] Start: 08-20-2023 End: 08-20-2023 Patient encounter procedure Seth Amanda [facility] Start: 11-13-2022 End: 11-14-[address] HUGO Facility:[facility] Start: 11-13-2022 End: 11-13-[address] [facility] Start: 09-26-2022 End: 09-26-2022 Office outpatient visit 15 minutes Bharathi Jackson MD Work Phone: [facility] Comment on above: Depression, unspecif ied depression type Start: 09-18-2022 End: 09-18-2022 Office outpatient visit 15 minutes Bharathi Jackson MD Work Phone: [facility] Comment on above: History of anxiety ( Primary Dx) Start: 07-22-2022 End: 07-22-2022 Patient encounter procedure Lizeth Galarza [facility] Start: 06-30-2022 Encounter for other general examination Dillan Funez [facility] Start: 06-30-2022 End: 06-30-2022 Emergency department patient visit Dillan Funez Facility:[id number] Start: 06-27-[address] Bharathi Jackson Facility:[id number] Start: 06-25-2022 End: 06-25-2022 Emergency department patient visit Jose Castillo [facility] Start: 06-24-2022 End: 06-24-2022 Emergency department patient visit Robert Davidson [facility] Start: 06-15-2022 Office outpatient ne w 30 minutes Bharathi Hurtado Manuel Work Phone: [facility] 5544 Work Phone: Start: 06-15-2022 Patient encounter procedure Bharathi Hurtado Manuel Work Phone: [facility] 2141 Work Phone: Start: 06-15-[address] Alexx Georges acility:[id number] Start: 01-30-2018 End: 01-31-2018 Patient encounter CESIA Grossman (CUSTOMER ENGAGEMENT SPECIALIST) [facility] Start: 01-08-2018 End: 01-09-2018 Patient encounter CESIA Grossman (CUSTOMER ENGAGEMENT SPECIALIST) [facility] Start: 04-23-2017 End: 04-23-2017 Emergency department patient visit ELLEN HARTFORD Facility:3 Start: 01-17-2017 End: 01-17-2017 Emergency department patient visit [facility] Facility:3 Procedures Date Procedure Procedure Detail Performing Clinician None (qualifier value) Jimena Galarza Screening colonoscopy Vickey R ae Comment on above: and Endoscopy; Plan of Treatment Date Care Activity Detail Author Start: 2052 Zoster Vaccines (1 of 2) Zoste r Vaccines (1 of 2) [facility] Start: 01-25-2023 Influenza vaccination Influenz a Vaccine (Season Ended) [facility] Start: 06-29-2022 FUV, Provider: Bharathi Jackson, Status: Pen, Time: 9:00 AM FUV, Provider: Bharathi Jackson, Status: Pen, Time: 9:00 AM [facility] 7369 Work Phone: Start: 02-11-2021 COVID-19 Vaccine (3 - Booster for Pfizer series) COVID-19 Vaccine (3 - Booster for Pfizer series) [facility] Start: 2020 Hepatitis C screening Hepatitis C [facility] Start: 08-26-2014 DTaP/Tdap/Td Vaccine s (3 - Td or Tdap) DTaP/Tdap/Td Vaccines (3 - Td or Tdap) [facility] Start: 01-31-2008 Varicella vaccination Varicell a Vaccines (2 of 2 - 2-dose childhood series) [facility] Start: 12-06-2007 MMR Vaccines (1 of 1 - Standard series) MMR Vaccines (1 of 1 - Standard series) [facility] Start: 2005 Well Child Visit (WC V) - Annual Well Child Visit (WCV) - Annual [facility] Start: 06-11-2003 Application of denta l fluoride varnish Fluoride Varnish [facility] Start: 2002 Hearing Screening (#1) Hearing Scree sherlyn (#1) [facility] Start: 2002 HIV screening HIV Screening [facility] Start: 2002 Lipid panel Lipid Panel [facility] Immunizations Immunization Date Immunization Notes Care Provider Fa cility 12-17-2020 SARS-CoV-2 (COVID-19 ) mRNA BNT-162b2 vax Augmedix [facility] 11-25-2020 SARS-CoV-2 (COVID-19 ) mRNA BNT-162b2 vax [employer]med[employer] [facility] 11-17-2019 meningococcal ACWY vaccine, unspecified formulation [employer] [facility] 11-17-2019 meningococcal oligosaccharide (groups A, C, Y and W-135) diphtheria toxoid conjugate vaccine (MCV4O); Translations: [Menveo Intramuscular Solution Reconstituted] Bharathi Jackson Work Phone: [facility] 42 Work Phone: Comment on above: Series: 05-29-2019 Seasonal, quadrivale nt, recombinant, injectable influenza vaccine, preservative free; Translations: [Flublok Quadrivalent 0.5 ML Intramuscular Solution Prefilled Syringe] Vickey Munson [facility] Work Phone: Comment on above: Series: 05-29-2019 influenza virus vacc ine, unspecified formulation Lizeth Orzech [facility] 03-13-2018 influenza virus vacc ine, unspecified formulation Lizeth Orzech [facility] 05-01-2017 influenza virus vacc ine, unspecified formulation Lizeth Orzech [facility] 03-02-2015 HPV, unspecified formulation Lizeth Orzech [facility] 03-02-2015 influenza virus vacc ine, unspecified formulation Lizeth Orzech [facility] 03-02-2015 meningococcal ACWY vaccine, unspecified formulation Lizeth Orzech [facility] 02-25-2014 HPV, unspecified formulation Lizeth Orzech [facility] 02-25-2014 tetanus toxoid, redu sarah diphtheria toxoid, and acellular pertussis vaccine, adsorbed Lizeth Orzech [facility] 11-08-2007 diphtheria, tetanus toxoids and acellular pertussis vaccine Lizeth Orzech [facility] 11-08-2007 measles, mumps and rubella virus vaccine Seth Amanda [facility] 11-08-2007 poliovirus vaccine, unspecified formulation Lizeth Orzech [facility] 11-08-2007 varicella virus vaccine Auro ra Orzech [facility] 04-24-2006 influenza, whole Lizeth Orze ch [facility] 02-10-2004 DTaP, unspecified formulation Lizeth Orzech [facility] 02-10-2004 Hib, unspecified formulation Lizeth Orzech [facility] 02-10-2004 poliovirus vaccine, unspecified formulation Lizeth Orzech [facility] 10-04-2003 measles, mumps and rubella virus vaccine Lizeth Orzech [facility] 10-04-2003 varicella virus vaccine Auro ra Orzech [facility] 06-03-2003 influenza, whole Lizeth Orze ch [facility] 05-03-2003 DTaP, unspecified formulation Lizeth Orzech [facility] 05-03-2003 hepatitis B vaccine, pediatric or pediatric/adolescent dosage Lizeth Orzech [facility] 05-03-2003 Hib, unspecified formulation Lizeth Orzech [facility] 05-03-2003 influenza, whole Lizeth Orze ch [facility] 03-01-2003 DTaP, unspecified formulation Lizeth Orzech [facility] 03-01-2003 Hib, unspecified formulation Lizeth Orzech [facility] 03-01-2003 poliovirus vaccine, unspecified formulation Lizeth Orzech [facility] 2002 DTaP, unspecified formulation Lizeth Orzech [facility] 2002 hepatitis B vaccine, pediatric or pediatric/adolescent dosage Lizeth Orzech [facility] 2002 Hib, unspecified formulation Lizeth Orzech [facility] 2002 poliovirus vaccine, unspecified formulation [place] [employer] [facility] 2002 hepatitis B vaccine, pediatric or pediatric/adolescent dosage Lizeth [employer] [facility] NEGATED: Highlighted row has not occurred!08-20-2023 influenza virus vaccine, unspecified formulation Seth Amanda [facility] Payers Date Payer Category Payer Self-pay 2022 Unknown [id number] 2022 Unknown 2002 Unknown [id number] [id number] 2002 Unknown [id number] [id number] 2002 Unknown [id number] 2002 Unknown [id number] [id number] 2002 Unknown [id number] [id number] Unknown [id number] Social History Date Type Detail Facility Assertion Unknown if ever smoked [facility] Work Phone: Start: 06-15-2022 End: 09-18-2022 Household composition Household composition [facility] Comment on above: Lives with mom age 3 2, stepfather, brother, and sister ages 8 & 6.Mother is a head butler; father age 31, does not live in family home, 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; Tobacco smoking status No Smokin g Status Entered [facility] Start: 06-15-2022 End: 09-18-2022 Sex Assigned At Male [facility] Start: 06-25-2022 End: 08-20-2023 Tobacco smoking status Never smoked tobacco (finding) [facility] Tobacco smoking status Never [facility] Start: 09-18-2022 Tobacco use and exposure Smokeless tobacco non-user [facility] Work Phone: Start: 2002 Sex Assigned At Not on file [facility] Work Phone: Start: 09-08-2022 End: 09-26-2022 Exposure to SARS-CoV-2 (event) Not sure [facility] NEGATED: Highlighted row Denies Tobacco use [facility] Work Phone: Functional Status Date Assessment Result Facility 08-20-2023 Functional Status N/A [facility] 07-22-2022 Functional Status N/A [facility] 06-25-2022 Functional Status N/A [facility] 06-24-2022 Functional Status N/A [facility] NEGATED: Highlighted row Functional performance Functional status health issues are not documented Disease [facility] Work Phone: Mental Status Date Assessment Result Facility NEGATED: Highlighted row Cognitive function [Interpretation] Cognitive status health issues are not documented Disease [facility] Work Phone: Clinical Notes 06-01-2021 to 08-20-2023 Bharathi Jackson MD - 09/26/2022 2:00 PM EDTDodelta Jackson MD - 09/18/2022 3:15 PM EDT Note Date & Type Note Facility 08-20-2023 Hospital Discharge instructions Patient Education 08/20/2023 14:37:01 Blepharitis, Strp-ae-Lssl Blepharitis Blepharitis is swelling of the eyelids. It can cause the eyes to feel dry or gritty. Other symptoms may include: Reddish, scaly skin around the scalp and eyebrows. Eyelids that itch or burn. Fluid that leaks from the eye at night. This causes the eyelashes to stick together in the morning. Eyelashes that fall out. Redness of the eyes. Eyes that are sensitive to light. Follow these instructions at home: Watch for any changes in how your eyes look or feel. Tell your doctor about any changes. Follow these instructions to help with your condition. Keeping clean Wash your hands often with soap and water for at least 20 seconds. Clean your eyes. Wash the edges of your eyelids using eyelid wipes or a small amount of baby shampoo that has been mixed with warm water (diluted). Do this 2 or more times a day. Wash your face and eyebrows at least once a day. Use a clean towel each time you dry your eyelids. ?Do not use the towel to clean or dry other areas of your body. ?Do not share your towel with anyone. General instructions Avoid wearing makeup until you get better. Do not share makeup with anyone. Avoid rubbing your eyes. Use a warm compress on your eyes for 5 10 minutes at a time. Do this 1 or 2 times a day, or as told by your doctor. You can use: ?A towel with warm water on it. ?A heating pad that can be warmed in the microwave. The pad should be very warm but not hot enough to burn the skin. If you were given an antibiotic cream or eye drops, use the medicine as told by your doctor. Do not stop using the medicine even if you feel better. Keep all follow-up visits. Contact a doctor if: Your eyelids feel hot. You have blisters on your eyelids. You have a rash on your eyelids. The swelling does not go away in 2 4 days. The swelling gets worse. Get help right away if: You have pain that gets worse or spreads to other parts of your face. You have redness that gets worse or spreads to other parts of your face. You have changes in how you see (vision). You have pain when you look at lights or things that move. You have a fever. Summary Blepharitis is swelling of the eyelids. Watch for any changes in how your eyes look or feel. Tell your doctor about any changes. Follow home care instructions as told by your doctor. Wash your hands often with soap and water for at least 20 seconds. Avoid wearing makeup. Do not rub your eyes. Use a warm compress, creams, or eye drops as told by your doctor. Let your doctor know if you have changes in how you see, blisters or a rash on your eyelids, or other problems. This information is not intended to replace advice given to you by your health care provider. Make sure you discuss any questions you have with your health care provider. Document Revised: 06/14/2021 Document Reviewed: 06/14/2021 [employer] Patient Education 2022 [facility]. [facility] 09-26-2022 History of Present illness Narrative Subjective Patient ID: King Dunne is a 21 y.o. male who presents for Depression. HPI Pt is needing the above diagnosis removed form list. Pt is no longer taking any medication for this condition. Pt is controlling this through non-medicated means Pt is applying for a job with the [employer] and they are requesting a letter form the doctor stating this as well as progress notes. Review of Systems Constitutional: no chills, no fever and no night sweats. Eyes: no blurred vision and no eyesight problems. ENT: no hearing loss, no nasal congestion, no hoarseness and no sore throat. Neck: no mass (es) and no swelling. Cardiovascular: no chest pain, no intermittent leg claudication, no lower extremity edema, no palpitation and no syncope. Respiratory: no cough, no shortness of breath during exertion, no shortness of breath at rest and no wheezing. Gastrointestinal: no abdominal pain, no blood in stools, no constipation, no diarrhea, no melena, no nausea, no rectal pain and no vomiting. Genitourinary: no dysuria, no change in urinary frequency, no urinary hesitancy and no feelings of urinary urgency. Musculoskeletal: no arthralgias, no back pain and no myalgias. Integumentary: no new skin lesions and no rashes. Neurological: no difficulty walking, no headache, no limb weakness, no numbness and no tingling. Psychiatric/Behavioral: no anxiety, no depression, no anhedonia and no substance use disorders. Endocrine: no recent weight gain and no recent weight loss. Hematologic/Lymphatic: no tendency for easy bruising and no swollen glands Objective Physical Exam Patient here for follow-up/further request for information for [employer] he has no physical complaints today he is on no medications no history of anxiety depression. Needs documentation with office notes today's exam is completely normal. Not due for any blood work or any other further follow-up. We will get him his shoulder progress notes and hopefully this will satisfy the company he is applying to. BP 106/64 Pulse 108 Temp 37 C (98.6 F) Resp 20 Ht 1.829 m (6') Wt 66.7 kg (147 lb) SpO2 98% BMI 19.94 kg/m Lab Results Component Value Date WBC 7.2 06/29/2022 HGB 15.0 06/29/2022 HCT 44.5 06/29/2022 MCV 87 06/29/2022 PLT 244 06/29/2022 Assessment/Plan Problem List Items Addressed This Visit Other Depression documented in this encounter [facility] Work Phone: 09-18-2022 History of Present illness Narrative Subjective Patient ID: King Dunne is a 21 y.o. male who presents for anxious episode . HPI Patient presents in office today to talk about her medication history Patient was prescribed diazepam and paroxetine for anxiety Patient admits that he only took these medications for a short period of time Patient admits that he no longer this medication Admits that he thinks that he he was having anxious episodes and not anxiety Admits that he will need a note for his new job stating that he no longer takes these medications and the side effects Review of Systems Constitutional: no chills, no fever and no night sweats. Eyes: no blurred vision and no eyesight problems. ENT: no hearing loss, no nasal congestion, no hoarseness and no sore throat. Neck: no mass (es) and no swelling. Cardiovascular: no chest pain, no intermittent leg claudication, no lower extremity edema, no palpitation and no syncope. Respiratory: no cough, no shortness of breath during exertion, no shortness of breath at rest and no wheezing. Gastrointestinal: no abdominal pain, no blood in stools, no constipation, no diarrhea, no melena, no nausea, no rectal pain and no vomiting. Genitourinary: no dysuria, no change in urinary frequency, no urinary hesitancy and no feelings of urinary urgency. Musculoskeletal: no arthralgias, no back pain and no myalgias. Integumentary: no new skin lesions and no rashes. Neurological: no difficulty walking, no headache, no limb weakness, no numbness and no tingling. Psychiatric/Behavioral: no anxiety, no depression, no anhedonia and no substance use disorders. Endocrine: no recent weight gain and no recent weight loss. Hematologic/Lymphatic: no tendency for easy bruising and no swollen glands Objective Physical Exam Patient in for follow-up had some mild anxiety was on medication in May early April stopped it has been fine since no longer having any anxiety issues probably related to his having a baby and being stressed out. Physical exam no complaints. 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 We will get the letter dictated and contact him. There were no vitals taken for this visit. Lab Results Component Value Date WBC 7.2 06/29/2022 HGB 15.0 06/29/2022 HCT 44.5 06/29/2022 MCV 87 06/29/2022 PLT 244 06/29/2022 Assessment/Plan Problem List Items Addressed This Visit None documented in this encounter [facility] Work Phone: 07-22-2022 Hospital Discharge instructions Follow Up Care 07/22/2022 11:47:15 With:MANUEL CASTELAN[facility] Address: [address] [place] [address]- When: Unknown [facility] 06-25-2022 Hospital Discharge instructions Patient Education 06/25/2022 13:49:07 Managing Anxiety, Adult Managing Anxiety, Adult After being diagnosed with an anxiety disorder, you may be relieved to know why you have felt or behaved a certain way. You may also feel overwhelmed about the treatment ahead and what it will mean for your life. With care and support, you can manage this condition and recover from it. How to manage lifestyle changes Managing stress and anxiety Stress is your body's reaction to life changes and events, both good and bad. Most stress will last just a few hours, but stress can be ongoing and can lead to more than just stress. Although stress can play a major role in anxiety, it is not the same as anxiety. Stress is usually caused by something external, such as a deadline, test, or competition. Stress normally passes after the triggering event has ended. Anxiety is caused by something internal, such as imagining a terrible outcome or worrying that something will go wrong that will devastate you. Anxiety often does not go away even after the triggering event is over, and it can become long-term (chronic) worry. It is important to understand the differences between stress and anxiety and to manage your stress effectively so that it does not lead to an anxious response. Talk with your health care provider or a counselor to learn more about reducing anxiety and stress. He or she may suggest tension reduction techniques, such as: Music therapy. This can include creating or listening to music that you enjoy and that inspires you. Mindfulness-based meditation. This involves being aware of your normal breaths while not trying to control your breathing. It can be done while sitting or walking. Centering prayer. This involves focusing on a word, phrase, or sacred image that means something to you and brings you peace. Deep breathing. To do this, expand your stomach and inhale slowly through your nose. Hold your breath for 3 5 seconds. Then exhale slowly, letting your stomach muscles relax. Self-talk. This involves identifying thought patterns that lead to anxiety reactions and changing those patterns. Muscle relaxation. This involves tensing muscles and then relaxing them. Choose a tension reduction technique that suits your lifestyle and personality. These techniques take time and practice. Set aside 5 15 minutes a day to do them. Therapists can offer counseling and training in these techniques. The training to help with anxiety may be covered by some insurance plans. Other things you can do to manage stress and anxiety include: Keeping a stress/anxiety diary. This can help you learn what triggers your reaction and then learn ways to manage your response. Thinking about how you react to certain situations. You may not be able to control everything, but you can control your response. Making time for activities that help you relax and not feeling guilty about spending your time in this way. Visual imagery and yoga can help you stay calm and relax. Medicines Medicines can help ease symptoms. Medicines for anxiety include: Anti-anxiety drugs. Antidepressants. Medicines are often used as a primary treatment for anxiety disorder. Medicines will be prescribed by a health care provider. When used together, medicines, psychotherapy, and tension reduction techniques may be the most effective treatment. Relationships Relationships can play a big part in helping you recover. Try to spend more time connecting with trusted friends and family members. Consider going to couples counseling, taking family education classes, or going to family therapy. Therapy can help you and others better understand your condition. How to recognize changes in your anxiety Everyone responds differently to treatment for anxiety. Recovery from anxiety happens when symptoms decrease and stop interfering with your daily activities at home or work. This may mean that you will start to: Have better concentration and focus. Worry will interfere less in your daily thinking. Sleep better. Be less irritable. Have more energy. Have improved memory. It is important to recognize when your condition is getting worse. Contact your health care provider if your symptoms interfere with home or work and you feel like your condition is not improving. Follow these instructions at home: Activity Exercise. Most adults should do the following: ?Exercise for at least 150 minutes each week. The exercise should increase your heart rate and make you sweat (moderate-intensity exercise). ?Strengthening exercises at least twice a week. Get the right amount and quality of sleep. Most adults need 7 9 hours of sleep each night. Lifestyle Eat a healthy diet that includes plenty of vegetables, fruits, whole grains, low-fat dairy products, and lean protein. Do not eat a lot of foods that are high in solid fats, added sugars, or salt. Make choices that simplify your life. Do not use any products that contain nicotine or tobacco, such as cigarettes, e-cigarettes, and chewing tobacco. If you need help quitting, ask your health care provider. Avoid caffeine, alcohol, and certain dmja-aeo-nxaplwi cold medicines. These may make you feel worse. Ask your pharmacist which medicines to avoid. General instructions Take lcka-tjt-syusqsc and prescription medicines only as told by your health care provider. Keep all follow-up visits as told by your health care provider. This is important. Where to find support You can get help and support from these sources: Self-help groups. Online and community organizations. A trusted spiritual leader. Couples counseling. Family education classes. Family therapy. Where to find more information You may find that joining a support group helps you deal with your anxiety. The following sources can help you locate counselors or support groups near you: Mental Health [place]: www.mentalhealthamer[place].net Anxiety and Depression Association of [place] (ADAA): www.adaa.org National Junior on Mental Illness (FRED): www.fred.org Contact a health care provider if you: Have a hard time staying focused or finishing daily tasks. Spend many hours a day feeling worried about everyday life. Become exhausted by worry. Start to have headaches, feel tense, or have nausea. Urinate more than normal. Have diarrhea. Get help right away if you have: A racing heart and shortness of breath. Thoughts of hurting yourself or others. If you ever feel like you may hurt yourself or others, or have thoughts about taking your own life, get help right away. You can go to your nearest emergency department or call: Your local emergency services (911 in the [place] A suicide crisis helpline, such as the National Suicide Prevention Lifeline at . This is open 24 hours a day. Summary Taking steps to learn and use tension reduction techniques can help calm you and help prevent triggering an anxiety reaction. When used together, medicines, psychotherapy, and tension reduction techniques may be the most effective treatment. Family, friends, and partners can play a big part in helping you recover from an anxiety disorder. This information is not intended to replace advice given to you by your health care provider. Make sure you discuss any questions you have with your health care provider. Document Released: 05/07/2017 Document Revised: 10/13/2019 Document Reviewed: 10/13/2019 [employer] Patient Education 2020 [facility]. 06/25/2022 13:49:07 Hyperventilation Hyperventilation Hyperventilation is a condition that happens when you breathe faster and more deeply than usual. An episode of hyperventilation usually lasts 20 30 minutes. During an episode, you may feel breathless, and your hands, feet, or mouth may tingle, spasm, or feel numb. Hyperventilation is usually triggered by stress, anxiety, or emotions. However, it can also be a sign of another condition, such as: A lung problem, including emphysema or asthma. An infection. Heart problems. . Bleeding. Follow these instructions at home: Learn and use deep breathing exercises that help you breathe from your diaphragm and abdomen. Practice relaxation techniques to reduce stress, such as visualization, meditation, or gentle yoga. If you are hyperventilating, breathe into a paper bag. This slows down breathing. Contact a health care provider if: You continue to have episodes of hyperventilation. Your hyperventilation gets worse. Get help right away if: You pass out due to hyperventilation. You have continued numbness after a period of hyperventilation. Summary Hyperventilation is breathing more deeply and more rapidly than normal. During an episode, you may feel breathless, and your hands, feet, or mouth may tingle, spasm, or feel numb. If you are hyperventilating, try breathing into a paper bag. This slows down breathing. This information is not intended to replace advice given to you by your health care provider. Make sure you discuss any questions you have with your health care provider. Document Released: 05/10/2001 Document Revised: 10/13/2018 Document Reviewed: 10/13/2018 [employer] Patient Education 2020 [facility] Follow Up Care 06/25/2022 10:30:26 With:[facility] Address: [address] [place] [address]- Business (1) When:06/28/2022 13:42:13 Comments:mental health services With:BHARATHI JACKSON Address: [address] [place] [address] [phone] Business (1) When:06/28/2022 13:42:02 [facility] 06-25-2022 Hospital Discharge instructions Patient Education 06/24/2022 22:23:52 Managing Anxiety, Adult Managing Anxiety, Adult After being diagnosed with an anxiety disorder, you may be relieved to know why you have felt or behaved a certain way. You may also feel overwhelmed about the treatment ahead and what it will mean for your life. With care and support, you can manage this condition and recover from it. How to manage lifestyle changes Managing stress and anxiety Stress is your body's reaction to life changes and events, both good and bad. Most stress will last just a few hours, but stress can be ongoing and can lead to more than just stress. Although stress can play a major role in anxiety, it is not the same as anxiety. Stress is usually caused by something external, such as a deadline, test, or competition. Stress normally passes after the triggering event has ended. Anxiety is caused by something internal, such as imagining a terrible outcome or worrying that something will go wrong that will devastate you. Anxiety often does not go away even after the triggering event is over, and it can become long-term (chronic) worry. It is important to understand the differences between stress and anxiety and to manage your stress effectively so that it does not lead to an anxious response. Talk with your health care provider or a counselor to learn more about reducing anxiety and stress. He or she may suggest tension reduction techniques, such as: Music therapy. This can include creating or listening to music that you enjoy and that inspires you. Mindfulness-based meditation. This involves being aware of your normal breaths while not trying to control your breathing. It can be done while sitting or walking. Centering prayer. This involves focusing on a word, phrase, or sacred image that means something to you and brings you peace. Deep breathing. To do this, expand your stomach and inhale slowly through your nose. Hold your breath for 3 5 seconds. Then exhale slowly, letting your stomach muscles relax. Self-talk. This involves identifying thought patterns that lead to anxiety reactions and changing those patterns. Muscle relaxation. This involves tensing muscles and then relaxing them. Choose a tension reduction technique that suits your lifestyle and personality. These techniques take time and practice. Set aside 5 15 minutes a day to do them. Therapists can offer counseling and training in these techniques. The training to help with anxiety may be covered by some insurance plans. Other things you can do to manage stress and anxiety include: Keeping a stress/anxiety diary. This can help you learn what triggers your reaction and then learn ways to manage your response. Thinking about how you react to certain situations. You may not be able to control everything, but you can control your response. Making time for activities that help you relax and not feeling guilty about spending your time in this way. Visual imagery and yoga can help you stay calm and relax. Medicines Medicines can help ease symptoms. Medicines for anxiety include: Anti-anxiety drugs. Antidepressants. Medicines are often used as a primary treatment for anxiety disorder. Medicines will be prescribed by a health care provider. When used together, medicines, psychotherapy, and tension reduction techniques may be the most effective treatment. Relationships Relationships can play a big part in helping you recover. Try to spend more time connecting with trusted friends and family members. Consider going to couples counseling, taking family education classes, or going to family therapy. Therapy can help you and others better understand your condition. How to recognize changes in your anxiety Everyone responds differently to treatment for anxiety. Recovery from anxiety happens when symptoms decrease and stop interfering with your daily activities at home or work. This may mean that you will start to: Have better concentration and focus. Worry will interfere less in your daily thinking. Sleep better. Be less irritable. Have more energy. Have improved memory. It is important to recognize when your condition is getting worse. Contact your health care provider if your symptoms interfere with home or work and you feel like your condition is not improving. Follow these instructions at home: Activity Exercise. Most adults should do the following: ?Exercise for at least 150 minutes each week. The exercise should increase your heart rate and make you sweat (moderate-intensity exercise). ?Strengthening exercises at least twice a week. Get the right amount and quality of sleep. Most adults need 7 9 hours of sleep each night. Lifestyle Eat a healthy diet that includes plenty of vegetables, fruits, whole grains, low-fat dairy products, and lean protein. Do not eat a lot of foods that are high in solid fats, added sugars, or salt. Make choices that simplify your life. Do not use any products that contain nicotine or tobacco, such as cigarettes, e-cigarettes, and chewing tobacco. If you need help quitting, ask your health care provider. Avoid caffeine, alcohol, and certain fhzn-qjn-sutcjms cold medicines. These may make you feel worse. Ask your pharmacist which medicines to avoid. General instructions Take jgtn-sxm-inzuctc and prescription medicines only as told by your health care provider. Keep all follow-up visits as told by your health care provider. This is important. Where to find support You can get help and support from these sources: Self-help groups. Online and community organizations. A trusted spiritual leader. Couples counseling. Family education classes. Family therapy. Where to find more information You may find that joining a support group helps you deal with your anxiety. The following sources can help you locate counselors or support groups near you: Mental Health [place]: www.mentalhealth[place].net Anxiety and Depression Association of [place] (ADAA): www.adaa.org National Junior on Mental Illness (FRED): www.fred.org Contact a health care provider if you: Have a hard time staying focused or finishing daily tasks. Spend many hours a day feeling worried about everyday life. Become exhausted by worry. Start to have headaches, feel tense, or have nausea. Urinate more than normal. Have diarrhea. Get help right away if you have: A racing heart and shortness of breath. Thoughts of hurting yourself or others. If you ever feel like you may hurt yourself or others, or have thoughts about taking your own life, get help right away. You can go to your nearest emergency department or call: Your local emergency services (911 in the [place] A suicide crisis helpline, such as the National Suicide Prevention Lifeline at . This is open 24 hours a day. Summary Taking steps to learn and use tension reduction techniques can help calm you and help prevent triggering an anxiety reaction. When used together, medicines, psychotherapy, and tension reduction techniques may be the most effective treatment. Family, friends, and partners can play a big part in helping you recover from an anxiety disorder. This information is not intended to replace advice given to you by your health care provider. Make sure you discuss any questions you have with your health care provider. Document Released: 05/07/2017 Document Revised: 10/13/2019 Document Reviewed: 10/13/2019 [employer] Patient Education 2020 [employer] Follow Up Care 06/24/2022 19:43:33 With:[facility] Address:Unknown When:06/27/2022 With:BHARATHI JACKSON Address: [address] [place] [address]- [phone] Business (1) When:06/27/2022 [facility] 06-01-2021 Note Infectious Disease 10 Things to Do When You Have COVID-19 Stay home. Don't go to school, work, or public areas. And don't use public transportation, ride-shares, or taxis unless you have no choice. Leave your home only if you need to get medical care. But call the doctor's office first so they know you're coming. And wear a cloth face cover. Ask before leaving isolation. Talk with your doctor or other health professional about when it will be safe for you to leave isolation. Wear a cloth face cover when you are around other people. It can help stop the spread of the virus when you cough or sneeze. Limit contact with people in your home. If possible, stay in a separate bedroom and use a separate bathroom. Avoid contact with pets and other animals. If possible, have a friend or family member care for them while you're sick. Cover your mouth and nose with a tissue when you cough or sneeze. Then throw the tissue in the trash right away. Wash your hands often, especially after you cough or sneeze. Use soap and water, and scrub for at least 20 seconds. If soap and water aren't available, use an alcohol-based hand social worker school. Don't share personal household items. These include bedding, towels, cups and glasses, and eating utensils. Clean and disinfect your home every day. Use household computer security manager or disinfectant wipes or sprays. Take special care to clean things that you grab with your hands. These include doorknobs, remote controls, phones, and handles on your refrigerator and microwave. And don't forget countertops, tabletops, bathrooms, and computer keyboards. Take acetaminophen (Tylenol) to relieve fever and body aches. Read and follow all instructions on the label. Current as of: February 09, 2020 Content Version: 12.7 ? [employer]. Care instructions adapted under license by your healthcare professional. If you have questions about a medical condition or this instruction, always ask your healthcare professional. [employer] disclaims any warranty or liability for your use of this information. [facility] Evaluation + Plan note No data available for this section [facility] Evaluation note Diagnosis History of anxiety- Primary documented in this encounter [facility] Work Phone: Evaluation note* Diagnosis Depression, unspecified depression type documented in this encounter [facility] Work Phone: Hospital Discharge instructions No data available for this section [facility] Progress note No data available for this section [facility] Summary Purpose Family History No Family History Records FoundUnknown Family Member Name Dates Details Family history of arthritis( V17.7, Z82.61) Comments:Other Status:Active Family history of asthma(V17 .5, Z82.5) Comments:Other Status:Active Family history of bleeding d isorder(V18.3, Z83.2) Comments:Other Status:Active Family history of depression (V17.0, Z81.8) Comments:Other Status:Active Family history of diabetes m ellitus(V18.0, Z83.3) Comments:Other Status:Active Family history of myocardial infarction(V17.3, Z82.49) Comments:Other Status:Active Family history of cardiac di sorder(V17.49, Z82.49) Comments:Other Status:Active Family history of hypertensi on(V17.49, Z82.49) Comments:Other Status:Active Family history of hyperlipid emia(V18.19, Z83.438) Comments:Other Status:Active Unknown Family Member Name Dates Details Family history of arthritis: Other(V17.7, Z82.61) Comments:At a young age; Status:Active Family history of asthma: Ot her(V17.5, Z82.5) Status:Active Family history of bleeding d isorder: Other(V18.3, Z83.2) Status:Active Family history of depression : Other(V17.0, Z81.8) Status:Active Family history of diabetes m ellitus: Other(V18.0, Z83.3) Status:Active Family history of myocardial infarction: Other(V17.3, Z82.49) Status:Active Family history of cardiac di sorder: Other(V17.49, Z82.49) Status:Active Family history of hypertensi on: Other(V17.49, Z82.49) Status:Active Family history of hyperlipid emia: Other(V18.19, Z83.438) Status:Active Unknown Family Member Name Dates Details Family history of arthritis: Other(V17.7, Z82.61) Comments:At a young age; Status:Active Family history of asthma: Ot her(V17.5, Z82.5) Status:Active Family history of bleeding d isorder: Other(V18.3, Z83.2) Status:Active Family history of depression : Other(V17.0, Z81.8) Status:Active Family history of diabetes m ellitus: Other(V18.0, Z83.3) Status:Active Family history of myocardial infarction: Other(V17.3, Z82.49) Status:Active Family history of cardiac di sorder: Other(V17.49, Z82.49) Status:Active Family history of hypertensi on: Other(V17.49, Z82.49) Status:Active Family history of hyperlipid emia: Other(V18.19, Z83.438) Status:Active Advance Directives No Advanced Directives Records FoundNo Advanced Directives Records FoundNo Advanced Directives Records FoundNo Advanced Directives Records FoundNo Advanced Directives Records FoundNo Advanced Directives Records FoundNo Advanced Directives Records Found Additional Source Comments (unrecognized sect ion and content) No Status Records FoundNo Status Records FoundNo Status Records FoundNo Status Records FoundNo Status Records FoundNo Status Records FoundNo Status Records Found INFORMATION SOURCE (unrecogn ized section and content) DATE CREATED AUTHOR 11/19/2017 [facility] DATE CREATED AUTHOR AUTHOR'S ORGANIZ ATION 02/10/2018 [facility] DATE CREATED AUTHOR AUTHOR'S ORGANIZ ATION 06/25/2019 [employer] DATE CREATED AUTHOR AUTHOR'S ORGANIZ ATION 08/07/2021 [facility] DATE CREATED AUTHOR AUTHOR'S ORGANIZ ATION 06/27/2022 [facility] DATE CREATED AUTHOR AUTHOR'S ORGANIZ ATION 02/17/2023 [facility] DATE CREATED AUTHOR AUTHOR'S ORGANIZ ATION 08/21/2023 [facility] Patient Care team informatio n (unrecognized section and content) Equipment Cleaner And Tester Relationship Specialty Start Date End Date Bharathi Jackson MD [address] [phone] PCP - General 06/29/22 Reason for Visit (unrecogniz ed section and content) Reason Comments anxious episode Reason Comments Depression FOR RECORDS PERTAINING TO PATIENTS WHO ARE OR HAVE BEEN ENROLLED IN A CHEMICAL DEPENDENCY/SUBSTANCEABUSE PROGRAM, SOME INFORMATION MAY BE OMITTED. This clinical summary was aggregated from multiple sources. Caution should be exercised in using it in the provision of clinical care. This summary normalizes information from multiple sources, and as a consequence, information in this document may materially change the coding, format and clinical context of patient data. In addition, data may be omitted in some cases. CLINICAL DECISIONS SHOULD BE BASED ON THE PRIMARY CLINICAL RECORDS. [employer] [facility]. provides no warranty or guarantee of the accuracy or completeness of information in this document.
== END 2024-05-22 09:28 | disposition home or self-care (01) ==
PROVIDERS: Emergency Provider Emergency Medicine
DX: K52.9 Noninfective gastroenteritis and colitis, unspecified (principal); F17.200 Nicotine dependence, unspecified, uncomplicated
CPT/HCPCS: 99283; Q0162